=== PATIENT | male | born 1990 | race American Indian/Alaskan Native ===

== ENCOUNTER 2018-04-03 21:13 | Emergency (ER) | payer OTHER, SELFPAY ==
[2018-04-03 21:22] VITALS: BP 111/88; PULSE 65; RESP 15; TEMP 36.9; O2SAT 97; BMI 43.4
--- NOTE | 2018-04-03 21:47 | ED.URI ---
HPI - URI/Sore Throat <JEANETTE Mcintyre - Last Filed: 04/03/18 21:52> General Chief Complaint: Upper Respiratory Symptoms Stated Complaint: stuff going on in my throat fever Time Seen by Provider: 04/03/18 21:22 Source: patient and family Mode of arrival: ambulatory Limitations: no limitations History of Present Illness HPI Narrative: Patient is a healthy 28-year-old male nonsmoker was who presents with a chief complaint of sore throat since yesterday. He notes some low-grade fevers up to 99.9 a few days prior. He denies any ear pain cough congestion. Denies any nausea vomiting or diarrhea. 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 He denies any chest pain or shortness of breath. Review of Systems <JEANETTE Mcintyre - Last Filed: 04/03/18 21:52> Review of Systems GENERAL: Denies chills, fatigue, malaise, fever, sweats. HEENT: See HPI RESPIRATORY: Denies dyspnea, cough, wheezing, hemoptysis, sputum. CARDIOVASCULAR: Denies chest pain, palpitations, orthopnea, edema, GASTROINTESTINAL: Denies nausea, vomiting, abdominal pain, diarrhea, constipation, melena. : Denies dysuria, frequency, incontinence, hematuria, urinary retention. MUSCULOSKELETAL: denies weakness, joint pain, or bony pain SKIN: Denies rash, skin lesions, or other NEUROLOGIC: Denies weakness, headache, numbness, change in speech, confusion, seizures, incoordination. PSYCHIATRIC: No concerning psychosocial issues. 12 point review of systems is negative except for those stated above Exam <JEANETTE Mcintyre - Last Filed: 04/03/18 21:52> Narrative Exam Narrative: GENERAL: This is a well-nourished, well-developed patient, no acute distress HEAD: Atraumatic. Normocephalic. No temporal or scalp tenderness. EYES: Pupils equal round and reactive. Extraocular motions intact. No scleral icterus. No injection or drainage. ENT: Nose without bleeding, purulent drainage or septal hematoma. Throat with erythema, throat without tonsillar hypertrophy or exudate or petechiae. Uvula midline. Airway patent. NECK: Trachea midline. No JVD or lymphadenopathy. Supple, nontender, no meningeal signs. CARDIOVASCULAR: Regular rate and rhythm without murmurs, gallops, or rubs. RESPIRATORY: Clear to auscultation. Breath sounds equal bilaterally. No wheezes, rales, or rhonchi. GASTROINTESTINAL: Abdomen soft, non-tender, nondistended. No hepato-splenomegaly, or palpable masses. No guarding. Active bowel sounds all 4 quadrants EXTREMITIES: No clubbing, cyanosis, or edema. No joint tenderness, effusion, or edema noted. BACK: Nontender without deformity or crepitance. No flank tenderness. NEURO: AOx3. SKIN: No rash or erythema. Initial Vital Signs Initial Vital Signs: Vital Signs Temperature 98.5 F 04/03/18 21:22 Pulse Rate 65 04/03/18 21:22 Respiratory Rate 15 04/03/18 21:22 Blood Pressure 111/88 04/03/18 21:22 Pulse Oximetry 97 04/03/18 21:22 <Sherrie Ramos DO - Last Filed: 04/04/18 01:32> Initial Vital Signs Initial Vital Signs: Vital Signs Temperature 98.5 F 04/03/18 21:22 Pulse Rate 65 04/03/18 21:22 Respiratory Rate 15 04/03/18 21:22 Blood Pressure 111/88 04/03/18 21:22 Pulse Oximetry 97 04/03/18 21:22 Course <MIGUEL ÁNGEL Mcintyre - Last Filed: 04/03/18 21:52> Vital Signs - 8 hr 04/03/18 21:22 Temperature 98.5 F Pulse Rate 65 Respiratory Rate 15 Blood Pressure 111/88 Pulse Oximetry 97 <Sherrie Ramos DO - Last Filed: 04/04/18 01:32> Vital Signs - 8 hr 04/03/18 21:22 Temperature 98.5 F Pulse Rate 65 Respiratory Rate 15 Blood Pressure 111/88 Pulse Oximetry 97 MDM - URI/Sore Throat <MIGUEL ÁNGEL Mcintyre - Last Filed: 04/03/18 21:52> Lab Data Point of Care Testing Rapid Strep A Negative MDM Narrative Medical decision making narrative: Patient is a 28-year-old male who presents with a chief complaint of sore throat. He is concerned about strep due to low-grade fevers. His rapid strep was negative. He is much relieved with this information. I discussed at length continue [id number]-ilixogl measures such as Tylenol ibuprofen and pushing fluids. I encouraged follow-up with primary care provider for new worsening symptoms and discussed return precautions the emergency department including shortness of breath or chest pain. Patient had no questions or concerns upon discharge. <Sherrie Ramos DO - Last Filed: 04/04/18 01:32> Lab Data Point of Care Testing Rapid Strep A Negative Discharge Plan Departure Patient Disposition: Home Clinical Impression: Pharyngitis Discharge Date/Time: 04/03/18 22:20 Interventions: ED Discharge Assessment Last Done: 04/03/18 22:20 Instructions: DI for Pharyngitis/Tonsillopharyngitis -- Adult Activity Restrictions/Additional Instructions: Your rapid strep was negative today. Please continue as needed and able. Please follow-up with primary care provider if needed. Please come back to the emergency department for any acute concerns. Referrals: Christiano Marques MD [Primary Care Provider] - <Sherrie Ramos DO - Last Filed: 04/04/18 01:32> Cosign ED Attending Cosignature Attestation: I was immediately available in the department for consultation. This documentation has been reviewed and I agree with assessment and plan. Supervised by Sherrie Ramos DO
--- NOTE | 2018-04-03 21:51 | ED_ITS ---
HPI - URI/Sore Throat <JEANETTE Mcintyre - Last Filed: 04/03/18 21:52> General Chief Complaint: Upper Respiratory Symptoms Stated Complaint: stuff going on in my throat fever Time Seen by Provider: 04/03/18 21:22 Source: patient and family Mode of arrival: ambulatory Limitations: no limitations History of Present Illness HPI Narrative: Patient is a healthy 28-year-old male nonsmoker was who presents with a chief complaint of sore throat since yesterday. He notes some low-grade fevers up to 99.9 a few days prior. He denies any ear pain cough congestion. Denies any nausea vomiting or diarrhea. 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 He denies any chest pain or shortness of breath. Review of Systems <JEANETTE Mcintyre - Last Filed: 04/03/18 21:52> Review of Systems GENERAL: Denies chills, fatigue, malaise, fever, sweats. HEENT: See HPI RESPIRATORY: Denies dyspnea, cough, wheezing, hemoptysis, sputum. CARDIOVASCULAR: Denies chest pain, palpitations, orthopnea, edema, GASTROINTESTINAL: Denies nausea, vomiting, abdominal pain, diarrhea, constipation, melena. : Denies dysuria, frequency, incontinence, hematuria, urinary retention. MUSCULOSKELETAL: denies weakness, joint pain, or bony pain SKIN: Denies rash, skin lesions, or other NEUROLOGIC: Denies weakness, headache, numbness, change in speech, confusion, seizures, incoordination. PSYCHIATRIC: No concerning psychosocial issues. 12 point review of systems is negative except for those stated above Exam <JEANETTE Mcintyre - Last Filed: 04/03/18 21:52> Narrative Exam Narrative: GENERAL: This is a well-nourished, well-developed patient, no acute distress HEAD: Atraumatic. Normocephalic. No temporal or scalp tenderness. EYES: Pupils equal round and reactive. Extraocular motions intact. No scleral icterus. No injection or drainage. ENT: Nose without bleeding, purulent drainage or septal hematoma. Throat with erythema, throat without tonsillar hypertrophy or exudate or petechiae. Uvula midline. Airway patent. NECK: Trachea midline. No JVD or lymphadenopathy. Supple, nontender, no meningeal signs. CARDIOVASCULAR: Regular rate and rhythm without murmurs, gallops, or rubs. RESPIRATORY: Clear to auscultation. Breath sounds equal bilaterally. No wheezes , rales, or rhonchi. GASTROINTESTINAL: Abdomen soft, non-tender, nondistended. No hepato-splenomegaly , or palpable masses. No guarding. Active bowel sounds all 4 quadrants EXTREMITIES: No clubbing, cyanosis, or edema. No joint tenderness, effusion, or edema noted. BACK: Nontender without deformity or crepitance. No flank tenderness. NEURO: AOx3. SKIN: No rash or erythema. Initial Vital Signs Initial Vital Signs: Vital Signs Temperature 98.5 F 04/03/18 21:22 Pulse Rate 65 04/03/18 21:22 Respiratory Rate 15 04/03/18 21:22 Blood Pressure 111/88 04/03/18 21:22 Pulse Oximetry 97 04/03/18 21:22 <Sherrie Ramos DO - Last Filed: 04/04/18 01:32> Initial Vital Signs Initial Vital Signs: Vital Signs Temperature 98.5 F 04/03/18 21:22 Pulse Rate 65 04/03/18 21:22 Respiratory Rate 15 04/03/18 21:22 Blood Pressure 111/88 04/03/18 21:22 Pulse Oximetry 97 04/03/18 21:22 Course <MIGUEL ÁNGEL Mcintyre - Last Filed: 04/03/18 21:52> Vital Signs - 8 hr 04/03/18 21:22 Temperature 98.5 F Pulse Rate 65 Respiratory Rate 15 Blood Pressure 111/88 Pulse Oximetry 97 <Sherrie Ramos DO - Last Filed: 04/04/18 01:32> Vital Signs - 8 hr 04/03/18 21:22 Temperature 98.5 F Pulse Rate 65 Respiratory Rate 15 Blood Pressure 111/88 Pulse Oximetry 97 MDM - URI/Sore Throat <MIGUEL ÁNGEL Mcintyre - Last Filed: 04/03/18 21:52> Lab Data Point of Care Testing Rapid Strep A Negative MDM Narrative Medical decision making narrative: Patient is a 28-year-old male who presents with a chief complaint of sore throat. He is concerned about strep due to low- grade fevers. His rapid strep was negative. He is much relieved with this information. I discussed at length continue edth-qkf-afluvli measures such as Tylenol ibuprofen and pushing fluids. I encouraged follow-up with primary care provider for new worsening symptoms and discussed return precautions the emergency department including shortness of breath or chest pain. Patient had no questions or concerns upon discharge. <Sherrie Ramos DO - Last Filed: 04/04/18 01:32> Lab Data Point of Care Testing Rapid Strep A Negative Discharge Plan Departure Patient Disposition: Home Clinical Impression: Pharyngitis Discharge Date/Time: 04/03/18 22:20 Interventions: ED Discharge Assessment Last Done: 04/03/18 22:20 Instructions: DI for Pharyngitis/Tonsillopharyngitis -- Adult Activity Restrictions/Additional Instructions: Your rapid strep was negative today. Please continue as needed and able. Please follow-up with primary care provider if needed. Please come back to the emergency department for any acute concerns. Referrals: Christiano Marques MD [Primary Care Provider] - <Sherrie Ramos DO - Last Filed: 04/04/18 01:32> Cosign ED Attending Cosignature Attestation: I was immediately available in the department for consultation. This documentation has been reviewed and I agree with assessment and plan. Supervised by Sherrie Ramos DO
== END 2018-04-03 22:20 | disposition home or self-care (01) ==
PROVIDERS: Emergency Provider Nurse Practitioner Family; Family Provider Family Medicine; PCP Family Medicine
DX: J02.9 Acute pharyngitis, unspecified (principal)
CPT/HCPCS: 87880; 99282; 99283

== ENCOUNTER 2019-05-16 11:49 | Emergency (ER) | payer OTHER, SELFPAY ==
[2019-05-16 12:23] VITALS: BP 140/80; PULSE 100; RESP 16; TEMP 38.2
--- NOTE | 2019-05-16 12:49 | ED.URI ---
HPI - URI/Sore Throat <MILTON Ortega - Last Filed: 05/16/19 13:43> General Chief Complaint: Upper Respiratory Symptoms Stated Complaint: fever,dizziness,fatigue, has not travelled Time Seen by Provider: 05/16/19 12:25 Source: patient Mode of arrival: Ambulatory Limitations: no limitations History of Present Illness HPI Narrative: This is a 29-year-old male, nonsmoker, who presents to ED with chief complain of fever, dizziness, sore throat with breathing, nausea, cough, body aches and headache since Wednesday evening. Patient reports productive purulent cough or knee when he wakes up in the morning but it clears up after then. Patient states no recent foreign travel but was exposed to his who had similar symptoms. Patient denies chronic illnesses or immunocompromised. Patient did not receive influenza vaccination for this season. Patient denies vomiting, diarrhea at this time and has been drinking a lot of liquids at home but has not been eating much due to no appetite. Patient denies chest pain, breathing difficulty except coughing. Patient had been taking Sudafed and DayQuil and last dose of this medication was yesterday. Related Data Allergies Allergy/AdvReac Type Severity Reaction Status Date / Time No Known Drug Allergies Allergy Verified 05/16/19 13:25 Review of Systems <MILTON Ortega - Last Filed: 05/16/19 13:43> Review of Systems Narrative: General: Denies (+) fever, chills, (+) fatigue, (+) malaise, sweats. HEENT: Denies sinus pain, ear pain, (+) sore throat, difficulty swallowing, (+) dizziness. Respiratory: See HPI Cardiovascular: Denies chest pain, palpitations, orthopnea, edema. Gastrointestinal: Denies (+) nausea, vomiting, abdominal pain, diarrhea, constipation, melena. : Denies dysuria, frequency, incontinence, hematuria, urinary retention. Musculoskeletal: Denies weakness, joint pain or bony pain. Skin: Denies rash, skin lesions, or other. Neurologic: Denies (+) weakness, (+) headache, numbness, change in speech, confusion, seizures, incoordination. Psychiatric: No concerning psychosocial issues. 12-point review of systems is negative except for those stated above. Patient History <MILTON Ortega - Last Filed: 05/16/19 13:43> Social History Smoking Status: Never smoker Smoking Status: Never smoker alcohol intake frequency: 0-2 drinks per day Substance Use Type: does not use Exam <MILTON Ortega - Last Filed: 05/16/19 13:43> Narrative Exam Narrative: GEN: Alert, oriented x 3, ill appearing and well nourished. Head: Normal cephalic, atraumatic. No scalp or temporal tenderness, palpable mass or rash. EYES: Pupils are equal, round, and reactive to light and accommodation. Extraocular muscles are intact bilaterally. There is no subconjunctival hemorrhage, exudate and sclera non-icteric. ENT: Bilateral auditory canals and tympanic membranes clear. Hearing grossly intact. Nose without bleeding, purulent discharge or deviation. Facial sinuses nontender to palpate. Mucous membrane moist, no mucosal lesion. Throat without erythema, tonsillar hypertrophy or exudate. Uvula in midline, airway patent. Neck: Trachea in midline. No JVD, non-tender without lymphadenopathy. No masses or thyroid megaly. Supple, non-tender and no meningeal signs. CARDIAC: Normal regular rate and rhythm without murmurs, gallops, or rubs. No chest wall tenderness. No peripheral edema, cyanosis or pallor. Capillary refill is less than 2 seconds. RESPIRATORY: Lungs are clear to auscultate bilaterally. No cough, wheezes, rales, or rhonchi. No stridor, respiratory distress, increase work of breathing, or accessary muscle used. ABD: Abdomen soft, nontender and non-distended. No guarding or rebound tenderness to palpate. Bowel sounds are normal in all 4 quadrants. There is no palpable masses or organomegaly. EXT: Full ROM of all extremities with no loss of sensation, strength, effusion or edema. SKIN: Warm, dry, normal color for patient. No erythema, lesions or rash over visible areas. BACK: Nontender without deformity or crepitance. No flank tenderness. NEUROLOGICAL: Alert and oriented to place, time and person. Sensation and motor function intact bilaterally. No facial droops, dysphasia. PSYCHIATRIC: Good judgement and reason, without hallucinations, abnormal affect or abnormal behaviors during the examination. Initial Vital Signs Initial Vital Signs: Vital Signs Temperature 100.7 F H 05/16/19 12:23 Pulse Rate 100 H 05/16/19 12:23 Respiratory Rate 16 05/16/19 12:23 Blood Pressure 140/80 05/16/19 12:23 <Violeta Fitzpatrick DO - Last Filed: 05/18/19 07:32> Initial Vital Signs Initial Vital Signs: Vital Signs Temperature 100.7 F H 05/16/19 12:23 Pulse Rate 100 H 05/16/19 12:23 Respiratory Rate 16 05/16/19 12:23 Blood Pressure 140/80 05/16/19 12:23 Scores <MILTON Ortega - Last Filed: 05/16/19 13:43> GCS [place] coma scale eye opening: Spontaneous [place] coma scale verbal response: Orientated [place] coma scale motor response: Obey commands [place] coma scale total score: 15 Course <MILTON Ortega - Last Filed: 05/16/19 13:43> Orders Ordered: Discontinued Medications Acetaminophen (Tylenol) 975 mg PO NOW ONE Stop: 05/16/19 12:47 Last Admin: 05/16/19 13:05 Dose: 975 mg Documented by: RAVI Ibuprofen (Advil) 400 mg PO NOW ONE Stop: 05/16/19 12:47 Last Admin: 05/16/19 13:05 Dose: 400 mg Documented by: RAVI Ondansetron HCl (Zofran Odt) 4 mg SL NOW ONE Stop: 05/16/19 12:47 Last Admin: 05/16/19 13:05 Dose: 4 mg Documented by: RAVI Vital Signs Vital signs: Vital Signs - 8 hr 05/16/19 12:23 Temperature 100.7 F H Pulse Rate 100 H Respiratory Rate 16 Blood Pressure 140/80 <Violeta Fitzpatrick DO - Last Filed: 05/18/19 07:32> Orders Ordered: Discontinued Medications Acetaminophen (Tylenol) 975 mg PO NOW ONE Stop: 05/16/19 12:47 Last Admin: 05/16/19 13:05 Dose: 975 mg Documented by: RAVI Ibuprofen (Advil) 400 mg PO NOW ONE Stop: 05/16/19 12:47 Last Admin: 05/16/19 13:05 Dose: 400 mg Documented by: RAVI Ondansetron HCl (Zofran Odt) 4 mg SL NOW ONE Stop: 05/16/19 12:47 Last Admin: 05/16/19 13:05 Dose: 4 mg Documented by: RAVI Vital Signs Vital signs: Vital Signs - 8 hr 05/16/19 12:23 Temperature 100.7 F H Pulse Rate 100 H Respiratory Rate 16 Blood Pressure 140/80 MDM - URI/Sore Throat <MILTON Ortega - Last Filed: 05/16/19 13:43> Differential Diagnosis Differential diagnosis: Likely upper respiratory infection, viral infection and influenza Medical Records Attestation: I reviewed the patient's medical records. Lab Data Attestation: I reviewed the patient's lab results. Labs: Lab Results 05/16/19 Range/Units 12:00 Influenza A (RT-PCR) Flu a positive H (NEGATIVE) Influenza B (RT-PCR) Flu b negative (NEGATIVE) MDM Narrative Medical decision making narrative: Flu +A per today's test. The patient is able to tolerate fluids and he does not have chronic illness or previous chronic respiratory disease. Patient declines flu medication at this time. We discussed supportive care for his illness and good hand hygiene. Work note provided and advised to stay home until fever free for 24 hours. Patient advised to continue with Tylenol and Motrin as needed for discomfort and fever and increase oral hydration. Also, Mucinex for cough. Return precautions were discussed with the patient. Patient verbalized understanding and agrees with treatment plan. <Violeta Fitzpatrick DO - Last Filed: 05/18/19 07:32> Lab Data Labs: Lab Results 05/16/19 Range/Units 12:00 Influenza A (RT-PCR) Flu a positive H (NEGATIVE) Influenza B (RT-PCR) Flu b negative (NEGATIVE) Discharge Plan Departure Patient Disposition: Home Clinical Impression: Influenza Discharge Date/Time: 05/16/19 14:07 Instructions: DI for Influenza -- Adult Activity Restrictions/Additional Instructions: You have been diagnosed with [influenza a positive A. ]. What to do: *Take your medications as directed. Please continue to take Tylenol and or Motrin as needed for fever and body aches. Tylenol 650-1000 mg up to 4 times a day every 6 hours as needed. Ibuprofen 400 mg to 800 mg 3 to 4 times a day with food as needed. Please hydrate yourself very well and other supportive care such as rest. Good hand hygiene to prevent transmitting illness to others. No flu medications as you declined at this time. Please take Mucinex to help with help with your cough. Work note has been provided. *Follow up with your primary care provider in 2-3 days, call for an appointment. Let them know you were seen in the ED and that we asked you to be seen in follow up. *Return to ED if you have any new, worsening, or concerning symptoms, such as [chest pain, breathing difficulty, unable to tolerate fluids, or any acute concerns]. Referrals: Christiano Marques MD [Primary Care Provider] - Stand Alone Forms: Work Release Note
[2019-05-16 12:53] LABS: Influenza A - CEPHEID Flu A POSITIVE (NEGATIVE); Influenza B - CEPHEID Flu B NEGATIVE (NEGATIVE)
[2019-05-16] MEDS: IBUPROFEN 400 MG TABLET PO (13:05)
[2019-05-16] MEDS: ONDANSETRON 4 MG ODT SL (13:05)
[2019-05-16] MEDS: ACETAMINOPHEN 325 MG TABLET 975 MG PO (13:05)
[2019-05-16 14:00] VITALS: TEMP 37.7
== END 2019-05-16 14:07 | disposition home or self-care (01) ==
PROVIDERS: Emergency Medicine; Emergency Provider Nurse Practitioner Family; Family Provider Family Medicine; PCP Family Medicine
DX: J09.X2 Influenza due to identified novel influenza A virus with other respiratory manifestations (principal)
CPT/HCPCS: 87502; 99283

== ENCOUNTER 2021-09-12 15:49 | Emergency (ER) | payer OTHER, SELFPAY ==
[2021-09-12 16:14] VITALS: BP 184/100; PULSE 81; RESP 18; TEMP 36.9; O2SAT 98; BMI 48.8
--- NOTE | 2021-09-12 16:28 | ED.GENADULT ---
HPI - General Adult General Chief complaint: Urogenital-Male Stated complaint: Tried urinating, swelled up and cut off flow Time Seen by Provider: 09/12/21 16:16 Source: patient Mode of arrival: Ambulatory History of Present Illness HPI narrative: Patient is a 31-year-old male. He states that approximately 8 years ago he sustained injury to his urethra when he inserted a headphone Derian up his urethra. He states that he did sustain an injury to the urethra. He has seen Urology since then and was told that he needed ?surgery ?for further evaluation although he never followed up. Since that time he has been able to urinate. He feels like he is emptying his bladder although he states that his urine stream is very irregular. He normally does not have any pain when he urinates. Today he woke up this morning. Urinated normal for him. Just prior to arrival he was urinating again when he states that mid stream he felt like the tip of his penis ?swelled up and cut off flow ?of the urine. He did have discomfort at the time. Since that time his symptoms have improved. He urinated without issue in triage. No fevers. No testicular pain. No abdominal pain. No change in bowel habits. No history of sexually transmitted diseases. Related Data Previous Rx's Medication Instructions Recorded nystatin 100,000 unit/gram topical 1 applic TOPICAL TID 7 Days #30 g 09/12/21 cream Allergies Allergy/AdvReac Type Severity Reaction Status Date / Time No Known Drug Allergies Allergy Verified 05/16/19 13:25 Review of Systems Constitutional Constitutional: Reports system reviewed and no additional complaints, except as documented Gastrointestinal Gastrointestinal: Reports system reviewed and no additional complaints, except as documented Genitourinary Genitourinary: Reports system reviewed and no additional complaints, except as documented Integumentary/Breasts Skin/Breast: Reports system reviewed and no additional complaints, except as documented Hematologic/Lymphatic On Anticoagulants: No Patient History Medical History Urethral injury Social History Smoking Status: Never smoker Smoking Status: Never smoker alcohol intake frequency: 0-2 drinks per day Substance Use Type: does not use Exam Initial Vital Signs Initial Vital Signs: Vital Signs Temperature 98.4 F 09/12/21 16:14 Pulse Rate 81 09/12/21 16:14 Respiratory Rate 18 09/12/21 16:14 Blood Pressure 184/100 H 09/12/21 16:14 Pulse Oximetry 98 09/12/21 16:14 GI Inspection: normal to inspection Palpation: soft, No firm and No tender Other: Circumcised, bilateral testes descended without tenderness. No hernia felt. Glans is unremarkable. He does have skin irritation and some ulcerations at the base of the glans where the skin folds are located. Skin Other: see section Neuro General: patient alert, patient awake and moves all extremities Extrem General: normal to inspection Psych Appearance: grossly normal and well kempt Course Vital Signs Vital signs: Vital Signs - 8 hr 09/12/21 16:14 Temperature 98.4 F Pulse Rate 81 Respiratory Rate 18 Blood Pressure 184/100 H Pulse Oximetry 98 Medical Decision Making Lab Data Lab results reviewed: Yes I reviewed the patient's lab results. Labs: Urine Dip Bedside Urine Glucose Negative Bedside Urine Bilirubin - Negative Bedside Urine Ketone - Negative Urine Specific [place] 1.025 Bedside Urine Occult Blood - Negative Bedside Urine pH 6.0 Bedside Urine Protein - Negative Bedside Urine Urobilinogen - Negative Bedside Urine Nitrite - Negative Bedside Urine Leukocytes - Negative Esterase Point of care testing: Urine Dip Bedside Urine Glucose Negative Bedside Urine Bilirubin - Negative Bedside Urine Ketone - Negative Urine Specific [place] 1.025 Bedside Urine Occult Blood - Negative Bedside Urine pH 6.0 Bedside Urine Protein - Negative Bedside Urine Urobilinogen - Negative Bedside Urine Nitrite - Negative Bedside Urine Leukocytes - Negative Esterase MDM Narrative Medical decision making narrative: Patient was able to urinate here in the ER any states it is back to his baseline. He does not have any sensation of retaining urine. His urinalysis shows no signs of infection. No blood. No history of stones. I would not be surprised if he does have strictures given his prior history. He does require follow-up with Urology although this does not need to happen emergently. He was given information for this. He does have skin changes around the base of the glans that is consistent with a yeast infection. Low suspicion for other infectious etiology to include chancroid/syphilis even other is a small ulceration in this area. Will start on nystatin cream. He was given strict return precautions. He expressed understanding and agreement. Discharge Plan Departure Patient Disposition: Home Clinical Impression: Urinary hesitancy, Skin yeast infection Activity Restrictions/Additional Instructions: It is important that you follow-up with Urology to discuss further evaluation of your symptoms. Please contact them at the number provided below the beginning of next week. Continue all medications as directed. Return to the emergency department for any new or worsening symptoms. Prescriptions: New nystatin 100,000 unit/gram cream 1 applic topical TID 7 Days Qty: 30 0RF Referrals: Christiano Marques MD [Primary Care Provider] -
[2021-09-12 17:06] VITALS: BP 159/83; PULSE 74; O2SAT 97
== END 2021-09-12 17:09 | disposition home or self-care (01) ==
PROVIDERS: Emergency Provider Emergency Medicine; Family Provider Family Medicine; PCP Family Medicine
DX: R39.11 Hesitancy of micturition (principal); B37.2 Candidiasis of skin and nail
CPT/HCPCS: 81003; 99281

== ENCOUNTER → 2022-01-20 07:53 | Outpatient (CLI) | payer OTHER, SELFPAY | PROVIDERS: Family Provider Family Medicine; Visit Provider Specialist | DX: R31.9 Hematuria, unspecified (principal); N48.0 Leukoplakia of penis | CPT/HCPCS: 51798; 81002; 87086; 87147; 99214 ==

== ENCOUNTER 2022-07-21 17:21 | Emergency (ER) | payer OTHER, SELFPAY ==
[2022-07-21 17:35] VITALS: BP 188/91; PULSE 79; RESP 18; TEMP 37; O2SAT 97; BMI 50.1
--- NOTE | 2022-07-21 18:16 | ED_ITS ---
HPI - Wound/Laceration General Chief Complaint: Wound/Laceration Stated Complaint: cut left forearm Time Seen by Provider: 07/21/22 18:12 Source: patient Mode of arrival: Ambulatory Limitations: no limitations History of Present Illness HPI narrative: Patient is an otherwise healthy 32-year-old male who is here for evaluation of lacerations/abrasions to his left forearm. He states that he cut it on a chain saw. The chainsaw was not running at the time. He does not know when his last tetanus shot was. He is no tingling or mobility issues to his left wrist and left hand. Was covered with a bandage prior to arrival. Related Data Allergies Allergy/AdvReac Type Severity Reaction Status Date / Time No Known Drug Allergies Allergy Verified 07/21/22 17:40 Review of Systems Constitutional Constitutional: Reports system reviewed and no additional complaints, except as documented Musculoskeletal Musculoskeletal: Reports system reviewed and no additional complaints, except as documented Integumentary/Breasts Skin/Breast: Reports system reviewed and no additional complaints, except as documented Neurologic Neurologic: Reports system reviewed and no additional complaints, except as documented Patient History Medical History Acquired urinary meatal stenosis BXO (balanitis xerotica obliterans) History of high blood pressure Urethral injury Family History Father Cancer Hypertension Social History marital status: number of children: 4 Smoking Status: Former smoker Tobacco: How many years used: 3 alcohol intake: former caffeine: Yes Type(s) of exercise: none Smoking Status: Former smoker alcohol intake frequency: 0-2 drinks per day Substance Use Type: does not use Exam Initial Vital Signs Initial Vital Signs: Vital Signs Temperature 98.6 F 07/21/22 17:35 Pulse Rate 79 07/21/22 17:35 Respiratory Rate 18 07/21/22 17:35 Blood Pressure 188/91 H 07/21/22 17:35 Pulse Oximetry 97 07/21/22 17:35 Oxygen Delivery Method Room Air 07/21/22 17:35 Const General: cooperative and comfortable Cardio Pulses: radial pulses present on the left Skin Other: Patient with several abrasions/superficial lacerations to the volar aspect of the distal 1/3 of the left forearm. Normal active bleeding. Neuro Sensory Exam: no sensory deficits noted Extrem Other: Full range of motion of left wrist and left hand. He can flex and extend at the wrist and the fingers. Course Orders Ordered: Discontinued Medications Bacitracin (Bacitracin Oint 0.9 Gm Pckt) 1 applic TOP NOW ONE Stop: 07/21/22 18:17 Last Admin: 07/21/22 18:20 Dose: 1 applic Documented By: [facility] Diphtheria/Tetanus/Acell Pertussis (Tet,Diph,Pertuss(Acell),Vac/Pf 0.5 Ml Syringe) 0.5 ml IM .ONCE ONE Stop: 07/21/22 18:09 Last Admin: 07/21/22 18:19 Dose: 0.5 ml Documented By: NICK Vital Signs Vital signs: Vital Signs - 8 hr 07/21/22 17:35 Temperature 98.6 F Pulse Rate 79 Respiratory Rate 18 Blood Pressure 188/91 H Pulse Oximetry 97 Oxygen Delivery Method Room Air MDM - Wound/Laceration MDM Narrative Medical decision making narrative: We lacerations are superficial. There is no active bleeding. No signs of tendon involvement. Neurovascularly intact. These superficial wounds to left arm the no specific intervention such as suturing here in the emergency department. Recommend covering with an antibiotic ointment and a bandage. His tetanus shot was updated. He was given care instructions and return precautions. L and I paperwork completed. He expressed understanding and agreement with plan. Discharge Plan Departure Patient Disposition: Home Clinical Impression: Abrasion of skin, Laceration of skin Instructions: DI for Minor Laceration Activity Restrictions/Additional Instructions: You can keep the area covered with antibiotic ointment and a bandage. Your tetanus was updated today. You have no restrictions of your activities. You can shower like normal and use soap and water. I would recommend that you keep a bandage over the area to keep it clean. Return to the emergency department f or new symptoms. Referrals: Miscellaneous,Doctor, [Primary Care Provider] - Stand Alone Forms: Patient Portal/API
[2022-07-21] MEDS: TET,DIPH,PERTUSS(ACELL),VAC/PF 0.5 ML SYRINGE IM (18:19)
[2022-07-21] MEDS: BACITRACIN OINT 0.9 GM PCKT 1 APPLIC TOP (18:20)
== END 2022-07-21 18:28 | disposition home or self-care (01) ==
PROVIDERS: Emergency Provider Emergency Medicine; Family Provider Family Medicine
DX: S51.812A Laceration without foreign body of left forearm, initial encounter (principal); W27.0XXA Contact with workbench tool, initial encounter; Z23 Encounter for immunization; Y99.0 Civilian activity done for income or pay
CPT/HCPCS: 90471; 99283; 90715

== ENCOUNTER 2022-11-28 11:01 | Inpatient (IN) | payer OTHER, SELFPAY ==
[2022-11-28] VITALS (60 sets, daily range): BP systolic 101–201; BP diastolic 58–95; PULSE 80–121; RESP 6–43; TEMP 31.1–38.7; O2SAT 90–97; BMI 52.2; BMI 51.5
--- NOTE | 2022-11-28 11:14 | DI.RAD.S_ITS ---
PROCEDURE: XR CHEST 1V INDICATIONS: suspected sepsis TECHNIQUE: One view of the chest was acquired. COMPARISON: None. FINDINGS: Surgical changes and devices: None. Lungs and pleura: Lungs are clear. No pleural effusions or pneumothorax. Mediastinum: Mediastinal contours appear normal. Heart size is normal. Bones and chest wall: No suspicious bony lesions. Overlying soft tissues appear unremarkable. IMPRESSION: No acute cardiopulmonary findings Approved by: Víctor Simmons M.D. on 11/28/2022 at 11:26
[2022-11-28] MEDS: ALBUTEROL/IPRATROPIUM 3 ML AMPUL INH (11:30)
[2022-11-28 11:49] LABS: INR 1.1 (0.9-1.3); Prothrombin Time 12.2 SECONDS (10.1-12.7)
[2022-11-28] MEDS: methylPREDNISolone 125 MG/2 ML VIAL IV (11:49)
--- NOTE | 2022-11-28 11:49 | ED_ITS ---
HPI - SOB/Dyspnea General Chief Complaint: Fever Stated Complaint: Allergies/Cold/Feverish/Cough/SOB Time Seen by Provider: 11/28/22 11:39 Source: patient and family Mode of arrival: Ambulatory Limitations: no limitations History of Present Illness HPI Narrative: Patient is a 32-year-old male history of exercise-induced asthma presents today with sudden onset shortness of breath. Developed upper respiratory like symptoms a few days ago. He is an obvious respiratory distress he has a fever of 101. He reports feeling fine yesterday and now feels like his chest is tight and difficulty breathing. Denies any cough. Related Data Home Medications Medication Instructions Recorded Confirmed No Known Home Medications 11/28/22 11/28/22 Allergies Allergy/AdvReac Type Severity Reaction Status Date / Time No Known Drug Allergies Allergy Verified 11/28/22 15:35 Review of Systems Review of Systems ROS Unobtainable: All systems reviewed & are unremarkable except as noted in HPI and below Patient History Medical History Acquired urinary meatal stenosis BXO (balanitis xerotica obliterans) History of high blood pressure Urethral injury Family History Father Cancer Hypertension Social History marital status: number of children: 4 household members: spouse Smoking Status: Former smoker Tobacco: How many years used: 3 alcohol intake: former caffeine: Yes Type(s) of exercise: none Smoking Status: Former smoker alcohol intake frequency: 0-2 drinks per day Substance Use Type: does not use Exam Initial Vital Signs Initial Vital Signs: Vital Signs Temperature 101.7 F H 11/28/22 11:14 Pulse Rate 100 H 11/28/22 11:14 Respiratory Rate 40 H 11/28/22 11:14 Blood Pressure 188/90 H 11/28/22 11:14 Pulse Oximetry 93 11/28/22 11:14 Oxygen Delivery Method Room Air 11/28/22 11:14 GENERAL: 32-year-old obese male in moderate respiratory distress HEENT: Head atraumatic,EOMI, pupils reactive, face symmetric, moist mucous membranes CARDIOVASCULAR: Regular rate and rhythm without murmurs, rubs or gallops. RESPIRATORY: Decreased breath sounds bilaterally some expiratory wheezing tachypneic ABDOMEN: Soft, nontender. Normoactive bowel sounds all 4 quadrants. No guarding or rebound. EXTREMITIES: Normal range of motion, no clubbing or edema. Neurovascularly intact NEUROLOGICAL: Alert and oriented x4. SKIN: Warm, dry, no laceration, no petechiae, no rashes or lesions. Course Orders Ordered: ED Orders 11/28/22 11:14 XR chest 1V Stat RT Consult Eval and Treat NOW 11/28/22 11:20 Respiratory Panel (Film Array) Stat 11/28/22 11:31 BNP [NT-proBNP (BNP-Adult 18+)] Stat Complete Blood Count AUTO DIFF Stat Comprehensive Metabolic Panel Stat Lactate (Lactic Acid) Stat Lipase Stat MAG [Magnesium] Stat PTT Partial Thromboplastin Saeed Stat Procalcitonin Stat Prothrombin Time INR Stat Trop I [Troponin I] Stat 11/28/22 11:43 EKG-12 Lead Stat 11/28/22 12:55 Urinalysis and Microscopic Stat Urine Culture Stat 11/28/22 13:18 Blood Culture Stat 11/28/22 14:05 ABG [Arterial Blood Gas] Stat Acetaminophen (Acetaminophen 325 Mg Tablet) 650 mg PO Q6H PRN PRN Reason: Fever/Mild Pain (1-3) Albuterol (Albuterol 2.5 Mg/3 Ml Neb (Adult)) 2.5 mg INH [id number] PRN PRN Reason: Shortness Of Breath Albuterol (Albuterol 2.5 Mg/3 Ml Neb (Adult)) 2.5 mg INH [id number] [id number] Last Admin: 11/28/22 18:37 Dose: Not Given Documented By: SAT Albuterol/Ipratropium (Albuterol/Ipratropium 3 Ml Ampul) 3 ml INH Q1H PRN PRN Reason: Shortness Of Breath Last Admin: 11/28/22 11:30 Dose: 3 ml Documented By: SAT Heparin Sodium (Porcine) (Heparin 5,000 Unit/Ml Vial) 5,000 unit SUBCUT BID [facility] Ondansetron HCl (Ondansetron 4 Mg/2 Ml Inj) 4 mg IV Q8HR PRN PRN Reason: Nausea And Vomiting Prednisone (Prednisone 20 Mg Tablet) 60 mg PO DAILY [facility] Discontinued Medications Albuterol (Albuterol 2.5 Mg/3 Ml Neb (Adult)) 20 mg INH NOW ONE Stop: 11/28/22 11:40 Last Admin: 11/28/22 11:52 Dose: 20 mg Documented By: RONALD Albuterol (Albuterol 2.5 Mg/3 Ml Neb (Adult)) 20 mg INH NOW ONE Stop: 11/28/22 15:25 Last Admin: 11/28/22 15:29 Dose: 20 mg Documented By: QAMAR Sodium Chloride (Normal Saline 0.9%) 1,000 mls @ 1,000 mls/hr IV BOLUS ONE Stop: 11/28/22 12:12 Last Infusion: 11/28/22 13:54 Dose: 0 mls/hr Documented By: Admin: 11/28/22 11:50 Dose: 1,000 mls/hr Documented By: Methylprednisolone (Methylprednisolone 125 Mg/2 Ml Vial) 125 mg IV NOW ONE Stop: 11/28/22 11:40 Last Admin: 11/28/22 11:49 Dose: 125 mg Documented By: ST Ondansetron HCl (Ondansetron 4 Mg/2 Ml Inj) 4 mg IV NOW PRN PRN Reason: Nausea And Vomiting Ondansetron HCl (Ondansetron 4 Mg Odt) 4 mg SL NOW PRN PRN Reason: Nausea And Vomiting Vital Signs Vital signs: Vital Signs - 8 hr 11/28/22 11:30 11/28/22 12:00 11/28/22 12:19 Pulse Rate 96 H 93 H 94 H Respiratory Rate 24 17 25 H Blood Pressure Pulse Oximetry 91 94 94 Oxygen Delivery Method Oximask Oxygen Flow Rate 6 Fraction of Inspired Oxygen 11/28/22 12:19 11/28/22 12:30 11/28/22 12:30 Pulse Rate 102 H Respiratory Rate 21 Blood Pressure 130/65 140/71 Pulse Oximetry 95 Oxygen Delivery Method Oxygen Flow Rate Fraction of Inspired Oxygen 11/28/22 13:00 11/28/22 13:01 11/28/22 13:01 Pulse Rate 111 H 112 H Respiratory Rate 24 21 Blood Pressure 173/85 H Pulse Oximetry 95 95 Oxygen Delivery Method Oxygen Flow Rate Fraction of Inspired Oxygen 11/28/22 13:15 11/28/22 13:30 11/28/22 13:31 Pulse Rate 112 H 109 H Respiratory Rate 42 H 33 H Blood Pressure 147/70 H Pulse Oximetry 95 94 Oxygen Delivery Method Oxygen Flow Rate Fraction of Inspired Oxygen 11/28/22 13:31 11/28/22 13:45 11/28/22 14:00 Pulse Rate 109 H 113 H 107 H Respiratory Rate 36 H 17 30 H Blood Pressure Pulse Oximetry 94 91 Oxygen Delivery Method Room Air Room Air Oxygen Flow Rate Fraction of Inspired Oxygen 11/28/22 11:50 11/28/22 13:00 11/28/22 12:00 Pulse Rate 80 108 H Respiratory Rate 24 24 Blood Pressure 132/59 L Pulse Oximetry 92 95 Oxygen Delivery Method Room Air Aerosol Mask Oxygen Flow Rate 6 Fraction of Inspired Oxygen 28 11/28/22 14:15 11/28/22 14:17 11/28/22 14:17 Pulse Rate 109 H 109 H Respiratory Rate 28 H 23 Blood Pressure 132/59 L Pulse Oximetry 92 91 Oxygen Delivery Method Oxygen Flow Rate Fraction of Inspired Oxygen 11/28/22 14:30 11/28/22 14:45 11/28/22 15:00 Pulse Rate 108 H 105 H 108 H Respiratory Rate 22 Blood Pressure Pulse Oximetry 96 95 92 Oxygen Delivery Method Oxygen Flow Rate Fraction of Inspired Oxygen 11/28/22 15:15 11/28/22 15:30 Pulse Rate 100 H 101 H Respiratory Rate Blood Pressure Pulse Oximetry 92 95 Oxygen Delivery Method BiPAP Oxygen Flow Rate Fraction of Inspired Oxygen MDM - SOB/Dyspnea Lab Data 11/28/22 11:31 11/28/22 11:31 Labs: Lab Results 11/28/22 11/28/22 11/28/22 Range/Units 11:20 11:20 11:31 WBC 17.6 H (4.5-11.0) X10^3/uL RBC 4.95 (4.5-5.9) X10^6/uL Hgb 14.2 (13.5-17.5) g/dL Hct 42.2 (41-53) % MCV 85.2 (80-100) fL MCH 28.7 (26-34) PG MCHC 33.7 (30-36) % RDW 13.2 (11.6-14.8) % Plt Count 324 (150-400) X10^3/uL Neut % (Auto) 77.1 H (50-75) % Lymph % (Auto) 11.6 L (25-40) % Davis % (Auto) 7.3 (3-14) % Eos % (Auto) 3.0 (2-4) % Baso % (Auto) 1.0 (0-2) % Neut # (Auto) 75593 H (4235-3279) /uL Lymph # (Auto) 2000 (1346-1770) /uL Davis # (Auto) 1300 H (0-900) /uL Eos # (Auto) 500 H (0-450) /uL Baso # (Auto) 200 H (0-100) /uL RBC Morphology Normal morphology PT (10.1-12.7) SECONDS INR (0.9-1.3) APTT (26-36) SECONDS ABG pH (7.35-7.45) ABG pCO2 (35-45) mmHg ABG pO2 (80-100) mmHg ABG HCO3 (23-27) mmol/L ABG Total CO2 (23-27) mmol/L ABG O2 Saturation (95-100) % ABG Base Excess (-2-3) mmol/L FiO2 Sodium (137-145) mmol/L Potassium (3.4-5.1) mmol/L Chloride (98-107) mmol/L Carbon Dioxide (22-32) mmol/L BUN (9-20) mg/dL Creatinine (0.66-1.25) mg/dL Estimated GFR (>60) mL/min BUN/Creatinine Ratio (6-22) Glucose (70-100) mg/dL Lactate (0.7-2.1) mmol/L Calcium (8.4-10.2) mg/dL Magnesium (1.6-2.3) mg/dL Total Bilirubin (0.2-1.3) mg/dL AST (17-59) IU/L ALT (<50) IU/L Alkaline Phosphatase (38-126) U/L Troponin I (0.01-0.034) ng/mL NT-Pro-B Natriuret Pep (<125) pg/mL Total Protein (6.3-8.2) g/dL Albumin (3.5-5.0) g/dL Globulin (1.7-4.1) g/dL Albumin/Globulin Ratio (1.0-2.8) Lipase (23-300) U/L Procalcitonin (<0.5) ng/mL Urine Color Urine Appearance Urine pH (4.5-8.0) Ur Specific [place] (1.000-1.035) Urine Protein (Negative) Urine Glucose (UA) (Negative) g/dL Urine Ketones (NEGATIVE) Urine Occult Blood (Negative) Urine Nitrate (Negative) Urine Bilirubin (NEGATIVE) Urine Urobilinogen (0.2) E.U./dL Ur Leukocyte Esterase (NEGATIVE) Urine RBC (0-5/HPF) Urine WBC (0-5/HPF) Ur Squamous Epith Cells (0-5/HPF) Urine Bacteria (None) Ur Culture Indicated? Chlamy pneumoniae PCR Not detected (Not Detect) Adenovirus (PCR) Not detected (Not Detect) B. pertussis DNA (PCR) Not detected (Not Detecte) B.parapertussis DNA PCR Not detected (Not Detecte) Coronavirus OC43 (PCR) Not detected (Not Detect) Coronavirus HKU1 (PCR) Not detected (Not Detect) Coronavirus 229E (PCR) Not detected (Not Detect) SARS-CoV-2 (PCR) Cancelled Not detected Coronavirus NL63 (PCR) Not detected (Not Detect) Human Metapneumovir PCR Not detected (Not Detect) Influenza Type A (PCR) Not detected (Not Detect) Influenza Type B (PCR) Not detected (Not Detect) M. pneumoniae (PCR) Not detected (Not Detect) Parainfluenza 1 (PCR) Not detected (Not Detect) Parainfluenza 2 (PCR) Not detected (Not Detect) Parainfluenza 3 (PCR) Not detected (Not Detect) Parainfluenza 4 (PCR) Not detected (Not Detect) RSV (PCR) Not detected (Not Detect) Entero/Rhino (PCR) Detected H (Not Detect) 11/28/22 11/28/22 11/28/22 Range/Units 11:31 11:31 11:31 WBC (4.5-11.0) X10^3/uL RBC (4.5-5.9) X10^6/uL Hgb (13.5-17.5) g/dL Hct (41-53) % MCV (80-100) fL MCH (26-34) PG MCHC (30-36) % RDW (11.6-14.8) % Plt Count (150-400) X10^3/uL Neut % (Auto) (50-75) % Lymph % (Auto) (25-40) % Davis % (Auto) (3-14) % Eos % (Auto) (2-4) % Baso % (Auto) (0-2) % Neut # (Auto) (7846-5614) /uL Lymph # (Auto) (9731-5008) /uL Davis # (Auto) (0-900) /uL Eos # (Auto) (0-450) /uL Baso # (Auto) (0-100) /uL RBC Morphology PT 12.2 (10.1-12.7) SECONDS INR 1.1 (0.9-1.3) APTT 22 L (26-36) SECONDS ABG pH (7.35-7.45) ABG pCO2 (35-45) mmHg ABG pO2 (80-100) mmHg ABG HCO3 (23-27) mmol/L ABG Total CO2 (23-27) mmol/L ABG O2 Saturation (95-100) % ABG Base Excess (-2-3) mmol/L FiO2 Sodium 137 (137-145) mmol/L Potassium 4.2 (3.4-5.1) mmol/L Chloride 100 (98-107) mmol/L Carbon Dioxide 27 (22-32) mmol/L BUN 9 (9-20) mg/dL Creatinine 0.76 (0.66-1.25) mg/dL Estimated GFR > 60 (>60) mL/min BUN/Creatinine Ratio 11.8 (6-22) Glucose 107 H (70-100) mg/dL Lactate 2.0 (0.7-2.1) mmol/L Calcium 8.9 (8.4-10.2) mg/dL Magnesium (1.6-2.3) mg/dL Total Bilirubin 0.7 (0.2-1.3) mg/dL AST 45 (17-59) IU/L ALT 40 (<50) IU/L Alkaline Phosphatase 106 (38-126) U/L Troponin I (0.01-0.034) ng/mL NT-Pro-B Natriuret Pep (<125) pg/mL Total Protein 8.4 H (6.3-8.2) g/dL Albumin 4.3 (3.5-5.0) g/dL Globulin 4.1 (1.7-4.1) g/dL Albumin/Globulin Ratio 1.0 (1.0-2.8) Lipase 118 (23-300) U/L Procalcitonin 0.07 (<0.5) ng/mL Urine Color Urine Appearance Urine pH (4.5-8.0) Ur Specific [place] (1.000-1.035) Urine Protein (Negative) Urine Glucose (UA) (Negative) g/dL Urine Ketones (NEGATIVE) Urine Occult Blood (Negative) Urine Nitrate (Negative) Urine Bilirubin (NEGATIVE) Urine Urobilinogen (0.2) E.U./dL Ur Leukocyte Esterase (NEGATIVE) Urine RBC (0-5/HPF) Urine WBC (0-5/HPF) Ur Squamous Epith Cells (0-5/HPF) Urine Bacteria (None) Ur Culture Indicated? Chlamy pneumoniae PCR (Not Detect) Adenovirus (PCR) (Not Detect) B. pertussis DNA (PCR) (Not Detecte) B.parapertussis DNA PCR (Not Detecte) Coronavirus OC43 (PCR) (Not Detect) Coronavirus HKU1 (PCR) (Not Detect) Coronavirus 229E (PCR) (Not Detect) SARS-CoV-2 (PCR) Coronavirus NL63 (PCR) (Not Detect) Human Metapneumovir PCR (Not Detect) Influenza Type A (PCR) (Not Detect) Influenza Type B (PCR) (Not Detect) M. pneumoniae (PCR) (Not Detect) Parainfluenza 1 (PCR) (Not Detect) Parainfluenza 2 (PCR) (Not Detect) Parainfluenza 3 (PCR) (Not Detect) Parainfluenza 4 (PCR) (Not Detect) RSV (PCR) (Not Detect) Entero/Rhino (PCR) (Not Detect) 11/28/22 11/28/22 11/28/22 Range/Units 11:31 11:31 12:55 WBC (4.5-11.0) X10^3/uL RBC (4.5-5.9) X10^6/uL Hgb (13.5-17.5) g/dL Hct (41-53) % MCV (80-100) fL MCH (26-34) PG MCHC (30-36) % RDW (11.6-14.8) % Plt Count (150-400) X10^3/uL Neut % (Auto) (50-75) % Lymph % (Auto) (25-40) % Davis % (Auto) (3-14) % Eos % (Auto) (2-4) % Baso % (Auto) (0-2) % Neut # (Auto) (4578-2739) /uL Lymph # (Auto) (7837-1836) /uL Davis # (Auto) (0-900) /uL Eos # (Auto) (0-450) /uL Baso # (Auto) (0-100) /uL RBC Morphology PT (10.1-12.7) SECONDS INR (0.9-1.3) APTT (26-36) SECONDS ABG pH (7.35-7.45) ABG pCO2 (35-45) mmHg ABG pO2 (80-100) mmHg ABG HCO3 (23-27) mmol/L ABG Total CO2 (23-27) mmol/L ABG O2 Saturation (95-100) % ABG Base Excess (-2-3) mmol/L FiO2 Sodium (137-145) mmol/L Potassium (3.4-5.1) mmol/L Chloride (98-107) mmol/L Carbon Dioxide (22-32) mmol/L BUN (9-20) mg/dL Creatinine (0.66-1.25) mg/dL Estimated GFR (>60) mL/min BUN/Creatinine Ratio (6-22) Glucose (70-100) mg/dL Lactate (0.7-2.1) mmol/L Calcium (8.4-10.2) mg/dL Magnesium 1.9 (1.6-2.3) mg/dL Total Bilirubin (0.2-1.3) mg/dL AST (17-59) IU/L ALT (<50) IU/L Alkaline Phosphatase (38-126) U/L Troponin I < 0.012 (0.01-0.034) ng/mL NT-Pro-B Natriuret Pep 37 (<125) pg/mL Total Protein (6.3-8.2) g/dL Albumin (3.5-5.0) g/dL Globulin (1.7-4.1) g/dL Albumin/Globulin Ratio (1.0-2.8) Lipase (23-300) U/L Procalcitonin (<0.5) ng/mL Urine Color Yellow Urine Appearance Clear Urine pH 7.0 (4.5-8.0) Ur Specific [place] 1.010 (1.000-1.035) Urine Protein Negative (Negative) Urine Glucose (UA) Negative (Negative) g/dL Urine Ketones Negative (NEGATIVE) Urine Occult Blood Trace-intact (Negative) Urine Nitrate Negative (Negative) Urine Bilirubin Negative (NEGATIVE) Urine Urobilinogen 0.2 (0.2) E.U./dL Ur Leukocyte Esterase Trace H (NEGATIVE) Urine RBC 0-1/hpf (0-5/HPF) Urine WBC 1-5/hpf (0-5/HPF) Ur Squamous Epith Cells 0-1 /hpf (0-5/HPF) Urine Bacteria Occasional (0-1) (None) Ur Culture Indicated? Specimen cultured Chlamy pneumoniae PCR (Not Detect) Adenovirus (PCR) (Not Detect) B. pertussis DNA (PCR) (Not Detecte) B.parapertussis DNA PCR (Not Detecte) Coronavirus OC43 (PCR) (Not Detect) Coronavirus HKU1 (PCR) (Not Detect) Coronavirus 229E (PCR) (Not Detect) SARS-CoV-2 (PCR) Coronavirus NL63 (PCR) (Not Detect) Human Metapneumovir PCR (Not Detect) Influenza Type A (PCR) (Not Detect) Influenza Type B (PCR) (Not Detect) M. pneumoniae (PCR) (Not Detect) Parainfluenza 1 (PCR) (Not Detect) Parainfluenza 2 (PCR) (Not Detect) Parainfluenza 3 (PCR) (Not Detect) Parainfluenza 4 (PCR) (Not Detect) RSV (PCR) (Not Detect) Entero/Rhino (PCR) (Not Detect) 11/28/22 Range/Units 14:05 WBC (4.5-11.0) X10^3/uL RBC (4.5-5.9) X10^6/uL Hgb (13.5-17.5) g/dL Hct (41-53) % MCV (80-100) fL MCH (26-34) PG MCHC (30-36) % RDW (11.6-14.8) % Plt Count (150-400) X10^3/uL Neut % (Auto) (50-75) % Lymph % (Auto) (25-40) % Davis % (Auto) (3-14) % Eos % (Auto) (2-4) % Baso % (Auto) (0-2) % Neut # (Auto) (8130-8849) /uL Lymph # (Auto) (8604-0269) /uL Davis # (Auto) (0-900) /uL Eos # (Auto) (0-450) /uL Baso # (Auto) (0-100) /uL RBC Morphology PT (10.1-12.7) SECONDS INR (0.9-1.3) APTT (26-36) SECONDS ABG pH 7.44 (7.35-7.45) ABG pCO2 32.4 L (35-45) mmHg ABG pO2 50 L (80-100) mmHg ABG HCO3 22 L (23-27) mmol/L ABG Total CO2 23 (23-27) mmol/L ABG O2 Saturation 87 L (95-100) % ABG Base Excess -2.0 (-2-3) mmol/L FiO2 21 Sodium (137-145) mmol/L Potassium (3.4-5.1) mmol/L Chloride (98-107) mmol/L Carbon Dioxide (22-32) mmol/L BUN (9-20) mg/dL Creatinine (0.66-1.25) mg/dL Estimated GFR (>60) mL/min BUN/Creatinine Ratio (6-22) Glucose (70-100) mg/dL Lactate (0.7-2.1) mmol/L Calcium (8.4-10.2) mg/dL Magnesium (1.6-2.3) mg/dL Total Bilirubin (0.2-1.3) mg/dL AST (17-59) IU/L ALT (<50) IU/L Alkaline Phosphatase (38-126) U/L Troponin I (0.01-0.034) ng/mL NT-Pro-B Natriuret Pep (<125) pg/mL Total Protein (6.3-8.2) g/dL Albumin (3.5-5.0) g/dL Globulin (1.7-4.1) g/dL Albumin/Globulin Ratio (1.0-2.8) Lipase (23-300) U/L Procalcitonin (<0.5) ng/mL Urine Color Urine Appearance Urine pH (4.5-8.0) Ur Specific [place] (1.000-1.035) Urine Protein (Negative) Urine Glucose (UA) (Negative) g/dL Urine Ketones (NEGATIVE) Urine Occult Blood (Negative) Urine Nitrate (Negative) Urine Bilirubin (NEGATIVE) Urine Urobilinogen (0.2) E.U./dL Ur Leukocyte Esterase (NEGATIVE) Urine RBC (0-5/HPF) Urine WBC (0-5/HPF) Ur Squamous Epith Cells (0-5/HPF) Urine Bacteria (None) Ur Culture Indicated? Chlamy pneumoniae PCR (Not Detect) Adenovirus (PCR) (Not Detect) B. pertussis DNA (PCR) (Not Detecte) B.parapertussis DNA PCR (Not Detecte) Coronavirus OC43 (PCR) (Not Detect) Coronavirus HKU1 (PCR) (Not Detect) Coronavirus 229E (PCR) (Not Detect) SARS-CoV-2 (PCR) Coronavirus NL63 (PCR) (Not Detect) Human Metapneumovir PCR (Not Detect) Influenza Type A (PCR) (Not Detect) Influenza Type B (PCR) (Not Detect) M. pneumoniae (PCR) (Not Detect) Parainfluenza 1 (PCR) (Not Detect) Parainfluenza 2 (PCR) (Not Detect) Parainfluenza 3 (PCR) (Not Detect) Parainfluenza 4 (PCR) (Not Detect) RSV (PCR) (Not Detect) Entero/Rhino (PCR) (Not Detect) Imaging Data Chest x-ray: Radiologist's Impression: PROCEDURE:? XR CHEST 1V ? INDICATIONS:? suspected sepsis ? TECHNIQUE:? One view of the chest was acquired.? ? COMPARISON:? None. ? FINDINGS:? ? Surgical changes and devices:? None.? ? Lungs and pleura:? Lungs are clear.? No pleural effusions or pneumothorax.? ? Mediastinum:? Mediastinal contours appear normal.? Heart size is normal.? ? Bones and chest wall:? No suspicious bony lesions.? Overlying soft tissues appear unremarkable.? ? IMPRESSION:? No acute cardiopulmonary findings ? ? ? Approved by: Víctor Simmons M.D. on 11/28/2022 at 11:26 ECG Data Interpretation: Sinus tachycardia 104 [place] interval 134 QRS [address] changes MDM Narrative Medical decision making narrative: Patient is 32-year-old male presenting today with respiratory distress tachypneic with borderline oxygen levels. He initially is given albuterol continuously and Solu-Medrol which does help. He was briefly tried on BiPAP but after a 40 mg of albuterol he started opening up and appearing better. He is positive for entero/rhinovirus x-ray is clear. He have leukocytosis with out evidence of a bacterial infection. PA O2 50, with 87% on room air. Possibly a mixed arterial venous gas according to respiratory although he still has some work of breathing although much improved. BNP is negative no evidence of fluid overload. He is febrile with upper respiratory like symptoms I think less likely to be pulmonary area embolism although it was considered. Dr. Silva accepts patient. No need for CT at this time. Discharge Plan Departure Patient Disposition: Admitted As Inpatient Clinical Impression: Hypoxia, Viral pneumonia Admit Date/Time: 11/28/22 15:31 Admit Provider: Mehul Silva
[2022-11-28] MEDS: SODIUM CHLORIDE 0.9% 1,000 ML 1000 ML IV (11:50)
[2022-11-28 11:52] LABS: PTT Partial Thromboplastin Tim 22 SECONDS (26-36)
[2022-11-28] MEDS: ALBUTEROL 2.5 MG/3 ML NEB (ADULT) 20 MG INH ×2 (11:52→15:29)
[2022-11-28 11:54] LABS: Alanine Aminotransferase 40 IU/L (<50); Albumin 4.3 g/dL (3.5-5.0); Alkaline Phosphatase 106 U/L (38-126); Aspartate Aminotransferase 45 IU/L (17-59); BUN Creatinine Ratio 11.8 (6-22); Bilirubin Total 0.7 mg/dL (0.2-1.3); Blood Urea Nitrogen 9 mg/dL (9-20); Calcium 8.9 mg/dL (8.4-10.2); Carbon Dioxide 27 mmol/L (22-32); Chloride 100 mmol/L (98-107); Estimated Glomerular Filt Rate > 60 mL/min (>60); Globulin 4.1 g/dL (1.7-4.1); Glucose 107 mg/dL (70-100); HEMOLYSIS < 15 (0-50); Lipase 118 U/L (23-300); Potassium 4.2 mmol/L (3.4-5.1); Sodium 137 mmol/L (137-145); Total Protein 8.4 g/dL (6.3-8.2)
[2022-11-28 11:57] LABS: Basophils Absolute Auto 200 /uL (0-100); Eosinophils Absolute Auto 500 /uL (0-450); Hematocrit 42.2 % (41-53); Hemoglobin 14.2 g/dL (13.5-17.5); Lymphocytes Absolute Auto 2000 /uL (1100-4500); Lymphocytes Percent Auto 11.6 % (25-40); Mean Corpuscular HGB Conc 33.7 % (30-36); Mean Corpuscular Hemoglobin 28.7 PG (26-34); Mean Corpuscular Volume 85.2 fL (80-100); Monocytes Absolute Auto 1300 /uL (0-900); Monocytes Percent Auto 7.3 % (3-14); Neutrophils Absolute Auto 13500 /uL (1500-7000); Neutrophils Percent Auto 77.1 % (50-75); Red Blood Cell Count 4.95 X10^6/uL (4.5-5.9); Red Cell Distribution Width 13.2 % (11.6-14.8); White Blood Cell Count 17.6 X10^3/uL (4.5-11.0)
[2022-11-28 12:04] LABS: Add Manual Diff / Slide Review SLIDE REVIEW
[2022-11-28 12:10] LABS: Procalcitonin 0.07 ng/mL (<0.5)
[2022-11-28 12:29] LABS: Platelet Count 324 X10^3/uL (150-400)
[2022-11-28 12:30] LABS: RBC Morphology Normal Morphology
[2022-11-28 12:33] LABS: NT-proBNP (BNP-Adult 18+) 37 pg/mL (<125); Troponin I < 0.012 ng/mL (0.01-0.034)
[2022-11-28 12:58] LABS: Adenovirus Not Detected (Not Detect); B. parapertussis Not Detected (Not Detecte); Bordetella pertussis Not Detected (Not Detecte); Chlamydophila pneumoniae Not Detected (Not Detect); Coronavirus 229E Not Detected (Not Detect); Coronavirus HKU1 Not Detected (Not Detect); Coronavirus NL 63 Not Detected (Not Detect); Coronavirus OC43 Not Detected (Not Detect); Human Metapneumovirus Not Detected (Not Detect); Human Rhinovirus/Enterovirus Detected (Not Detect); Influenza A Not Detected (Not Detect); Influenza B Not Detected (Not Detect); Mycoplasma pneumoniae Not Detected (Not Detect); Parainfluenza Virus 1 Not Detected (Not Detect); Parainfluenza Virus 2 Not Detected (Not Detect); Parainfluenza Virus 3 Not Detected (Not Detect); Parainfluenza Virus 4 Not Detected (Not Detect); Respiratory Syncytial Virus Not Detected (Not Detect); SARS- CoV-2 Not Detected (Not Detecte)
[2022-11-28 13:02] LABS: Magnesium 1.9 mg/dL (1.6-2.3)
--- NOTE | 2022-11-28 13:59 | PC.NURSE ---
Pt resting comfortably after neb treatments. Breathing is non-labored although tachypneic. Wheezes have diminished. Coarse crackles heard. Family at bedside.
[2022-11-28 14:37] LABS: Appearance Urine UA CLEAR; Bilirubin Urine UA NEGATIVE (NEGATIVE); Glucose Urine UA NEGATIVE (Negative); Ketones Urine UA NEGATIVE (NEGATIVE); Leukocyte Esterase Urine UA TRACE (NEGATIVE); Nitrite Urine UA NEGATIVE (Negative); Occult Blood Urine UA TRACE-INTACT (Negative); Protein Urine UA NEGATIVE (Negative); Urobilinogen Urine UA 0.2 E.U./dL (0.2)
[2022-11-28 14:38] LABS: Color Urine UA Yellow
[2022-11-28 14:49] LABS: RBC Urine 0-1/HPF (0-5/HPF)
[2022-11-28 14:50] LABS: Bacteria Urine Occasional (0-1); Culture Indicated Urine Specimen Cultured; Squamous Epithelial Cell Urine 0-1 /HPF (0-5/HPF); WBC Urine 1-5/HPF (0-5/HPF)
[2022-11-28 14:56] LABS: PCO2 ABG 32.4 mmHg (35-45); PO2 ABG 50 mmHg (80-100); pH ABG 7.44 (7.35-7.45)
[2022-11-28 14:59] LABS: HCO3 ABG 22 mmol/L (23-27)
[2022-11-28 15:00] LABS: Fractionated Inspired Oxygen 21; Oxygen Saturation ABG 87 % (95-100); TCO2 ABG 23 mmol/L (23-27)
--- NOTE | 2022-11-28 16:10 | PC.NURSE ---
Called report to PERRI Rodriguez
--- NOTE | 2022-11-28 17:46 | PC.ADMIT ---
[facility] Admission Note: The patient,Glen Henriquez,32 y/o, was given written information regarding hospital policies, unit procedures and contact persons. Patient's smoking status: Former smoker. Vital Signs - 8 hr 11/28/22 11:14 11/28/22 11:14 11/28/22 11:16 Temperature 101.7 F H Pulse Rate 100 H 100 H Respiratory Rate 40 H Blood Pressure 188/90 H 201/95 H Pulse Oximetry 93 Oxygen Delivery Method Room Air Oxygen Flow Rate Fraction of Inspired Oxygen 11/28/22 11:16 11/28/22 11:30 11/28/22 12:00 Temperature Pulse Rate 91 H 96 H 93 H Respiratory Rate 6 L 24 17 Blood Pressure Pulse Oximetry 92 91 94 Oxygen Delivery Method Oximask Oxygen Flow Rate 6 Fraction of Inspired Oxygen 11/28/22 12:19 11/28/22 12:19 11/28/22 12:30 Temperature Pulse Rate 94 H Respiratory Rate 25 H Blood Pressure 130/65 140/71 Pulse Oximetry 94 Oxygen Delivery Method Oxygen Flow Rate Fraction of Inspired Oxygen 11/28/22 12:30 11/28/22 13:00 11/28/22 13:01 Temperature Pulse Rate 102 H 111 H Respiratory Rate 21 24 Blood Pressure 173/85 H Pulse Oximetry 95 95 Oxygen Delivery Method Oxygen Flow Rate Fraction of Inspired Oxygen 11/28/22 13:01 11/28/22 13:15 11/28/22 13:30 Temperature Pulse Rate 112 H 112 H 109 H Respiratory Rate 21 42 H 33 H Blood Pressure Pulse Oximetry 95 95 94 Oxygen Delivery Method Oxygen Flow Rate Fraction of Inspired Oxygen 11/28/22 13:31 11/28/22 13:31 11/28/22 13:45 Temperature Pulse Rate 109 H 113 H Respiratory Rate 36 H 17 Blood Pressure 147/70 H Pulse Oximetry 94 Oxygen Delivery Method Room Air Oxygen Flow Rate Fraction of Inspired Oxygen 11/28/22 14:00 11/28/22 11:50 11/28/22 13:00 Temperature Pulse Rate 107 H 80 108 H Respiratory Rate 30 H 24 24 Blood Pressure Pulse Oximetry 91 92 95 Oxygen Delivery Method Room Air Room Air Aerosol Mask Oxygen Flow Rate 6 Fraction of Inspired Oxygen 11/28/22 15:39 11/28/22 12:00 11/28/22 14:15 Temperature Pulse Rate 104 H 109 H Respiratory Rate 26 H 28 H Blood Pressure 132/59 L Pulse Oximetry 96 92 Oxygen Delivery Method Aerosol Mask Oxygen Flow Rate 10 Fraction of Inspired Oxygen 28 11/28/22 14:17 11/28/22 14:17 11/28/22 14:30 Temperature Pulse Rate 109 H 108 H Respiratory Rate 23 22 Blood Pressure 132/59 L Pulse Oximetry 91 96 Oxygen Delivery Method Oxygen Flow Rate Fraction of Inspired Oxygen 11/28/22 14:45 11/28/22 15:00 11/28/22 15:15 Temperature Pulse Rate 105 H 108 H 100 H Respiratory Rate Blood Pressure Pulse Oximetry 95 92 92 Oxygen Delivery Method Oxygen Flow Rate Fraction of Inspired Oxygen 11/28/22 15:30 11/28/22 15:45 11/28/22 15:46 Temperature Pulse Rate 101 H 108 H Respiratory Rate 23 Blood Pressure 101/58 L Pulse Oximetry 95 95 Oxygen Delivery Method BiPAP Oxygen Flow Rate Fraction of Inspired Oxygen 11/28/22 15:46 11/28/22 16:00 11/28/22 16:00 Temperature Pulse Rate 109 H 111 H Respiratory Rate 22 35 H Blood Pressure 138/60 Pulse Oximetry 96 94 Oxygen Delivery Method Oxygen Flow Rate Fraction of Inspired Oxygen 11/28/22 15:39 11/28/22 16:15 11/28/22 16:30 Temperature Pulse Rate 114 H 117 H Respiratory Rate Blood Pressure Pulse Oximetry 94 93 Oxygen Delivery Method Room Air Oxygen Flow Rate Fraction of Inspired Oxygen 11/28/22 16:51 11/28/22 16:57 11/28/22 16:57 Temperature Pulse Rate 121 H 119 H Respiratory Rate 26 H Blood Pressure 143/65 H Pulse Oximetry 95 94 Oxygen Delivery Method Oxygen Flow Rate Fraction of Inspired Oxygen 11/28/22 17:00 11/28/22 17:15 11/28/22 17:01 Temperature 98.4 F Pulse Rate 119 H 116 H Respiratory Rate 39 H 43 H Blood Pressure Pulse Oximetry 92 91 Oxygen Delivery Method Oxygen Flow Rate Fraction of Inspired Oxygen Pt arrived via gurney from ED, able to slide on to bed, RT at bedside, pt not on any oxygen or BIPAP saturations in the 91-94%, RR in the 30's, connected to all monitoring equipment (see vitals for monitor capture), oriented to room and call light system. Able to make needs known, call light within reach.
--- NOTE | 2022-11-28 17:53 | P.HP_ITS ---
History of Present Illness History of Present Illness Date Patient Seen: 11/28/22 Time Patient Seen: 15:00 Chief complaint: Allergies/Cold/Feverish/Cough/SOB Narrative: Mr. Henriquez is a 32M with PMH of asthma, morbid obesity who presents to the hospital with cough, fevers, shortness of breath. He states he developed a cold a few days ago. He started feeling much worse today with difficulty breathing. He has no chest pain. He is coughing up some phlegm. He did smoke for years but has quit. He does not have any medications for asthma at home, and has never be en hospitalized with an asthma exacerbation. In the ED workup was done, vitals notable for fever to 101.7, heart rate in 100s, respiratory rate in 40s, sats in low 90s. Peak flow was 280. Labs reviewed by me and notable for ABG with pH 7.44, paO2 50. WBC 17.6. Lactate 2.0. Procal 0.07. Urine negative for infection. COVID negative. Enterovirus PCR positive. Chest xray reviewed by me and with only mild interstitial infiltrates per my read. He was ordered for albuterol. He was placed on BIPAP due to increased work of breathing. He was given additional albuterol. He was ordered for steroids and admitted for further treatment. [facility] Medical History Acquired urinary meatal stenosis BXO (balanitis xerotica obliterans) History of high blood pressure Urethral injury Family History Father Cancer Hypertension Social History marital status: number of children: 4 household members: spouse Smoking Status: Former smoker Tobacco: How many years used: 3 alcohol intake: former caffeine: Yes Type(s) of exercise: none Meds Home Medications and Allergies Home Medications Medication Instructions Recorded Confirmed Type No Known Home Medications 11/28/22 11/28/22 History Allergies Allergy/AdvReac Type Severity Reaction Status Date / Time No Known Drug Allergies Allergy Verified 11/28/22 15:35 Review of Systems Review of Systems Narrative: 14 systems reviewed and negative aside from what is noted in HPI Exam Vital Signs (past 8 hours): - 11/28/22 11:14 11/28/22 11:14 11/28/22 11:16 Temperature 101.7 F H Pulse Rate 100 H 100 H Respiratory Rate 40 H Blood Pressure 188/90 H 201/95 H Pulse Oximetry 93 Oxygen Delivery Method Room Air Oxygen Flow Rate Fraction of Inspired Oxygen 11/28/22 11:16 11/28/22 11:30 11/28/22 12:00 Temperature Pulse Rate 91 H 96 H 93 H Respiratory Rate 6 L 24 17 Blood Pressure Pulse Oximetry 92 91 94 Oxygen Delivery Method Oximask Oxygen Flow Rate 6 Fraction of Inspired Oxygen 11/28/22 12:19 11/28/22 12:19 11/28/22 12:30 Temperature Pulse Rate 94 H Respiratory Rate 25 H Blood Pressure 130/65 140/71 Pulse Oximetry 94 Oxygen Delivery Method Oxygen Flow Rate Fraction of Inspired Oxygen 11/28/22 12:30 11/28/22 13:00 11/28/22 13:01 Temperature Pulse Rate 102 H 111 H Respiratory Rate 21 24 Blood Pressure 173/85 H Pulse Oximetry 95 95 Oxygen Delivery Method Oxygen Flow Rate Fraction of Inspired Oxygen 11/28/22 13:01 11/28/22 13:15 11/28/22 13:30 Temperature Pulse Rate 112 H 112 H 109 H Respiratory Rate 21 42 H 33 H Blood Pressure Pulse Oximetry 95 95 94 Oxygen Delivery Method Oxygen Flow Rate Fraction of Inspired Oxygen 11/28/22 13:31 11/28/22 13:31 11/28/22 13:45 Temperature Pulse Rate 109 H 113 H Respiratory Rate 36 H 17 Blood Pressure 147/70 H Pulse Oximetry 94 Oxygen Delivery Method Room Air Oxygen Flow Rate Fraction of Inspired Oxygen 11/28/22 14:00 11/28/22 11:50 11/28/22 13:00 Temperature Pulse Rate 107 H 80 108 H Respiratory Rate 30 H 24 24 Blood Pressure Pulse Oximetry 91 92 95 Oxygen Delivery Method Room Air Room Air Aerosol Mask Oxygen Flow Rate 6 Fraction of Inspired Oxygen 11/28/22 15:39 11/28/22 12:00 11/28/22 14:15 Temperature Pulse Rate 104 H 109 H Respiratory Rate 26 H 28 H Blood Pressure 132/59 L Pulse Oximetry 96 92 Oxygen Delivery Method Aerosol Mask Oxygen Flow Rate 10 Fraction of Inspired Oxygen 28 11/28/22 14:17 11/28/22 14:17 11/28/22 14:30 Temperature Pulse Rate 109 H 108 H Respiratory Rate 23 22 Blood Pressure 132/59 L Pulse Oximetry 91 96 Oxygen Delivery Method Oxygen Flow Rate Fraction of Inspired Oxygen 11/28/22 14:45 11/28/22 15:00 11/28/22 15:15 Temperature Pulse Rate 105 H 108 H 100 H Respiratory Rate Blood Pressure Pulse Oximetry 95 92 92 Oxygen Delivery Method Oxygen Flow Rate Fraction of Inspired Oxygen 11/28/22 15:30 11/28/22 15:45 11/28/22 15:46 Temperature Pulse Rate 101 H 108 H Respiratory Rate 23 Blood Pressure 101/58 L Pulse Oximetry 95 95 Oxygen Delivery Method BiPAP Oxygen Flow Rate Fraction of Inspired Oxygen 11/28/22 15:46 11/28/22 16:00 11/28/22 16:00 Temperature Pulse Rate 109 H 111 H Respiratory Rate 22 35 H Blood Pressure 138/60 Pulse Oximetry 96 94 Oxygen Delivery Method Oxygen Flow Rate Fraction of Inspired Oxygen 11/28/22 15:39 11/28/22 16:15 11/28/22 16:30 Temperature Pulse Rate 114 H 117 H Respiratory Rate Blood Pressure Pulse Oximetry 94 93 Oxygen Delivery Method Room Air Oxygen Flow Rate Fraction of Inspired Oxygen 11/28/22 16:51 11/28/22 16:57 11/28/22 16:57 Temperature Pulse Rate 121 H 119 H Respiratory Rate 26 H Blood Pressure 143/65 H Pulse Oximetry 95 94 Oxygen Delivery Method Oxygen Flow Rate Fraction of Inspired Oxygen 11/28/22 17:00 11/28/22 17:15 11/28/22 17:01 Temperature 98.4 F Pulse Rate 119 H 116 H Respiratory Rate 39 H 43 H Blood Pressure Pulse Oximetry 92 91 Oxygen Delivery Method Oxygen Flow Rate Fraction of Inspired Oxygen Fraction of Inspired Oxygen 28 Oxygen Delivery Method Room Air Oxygen Flow Rate 10 Narrative Exam Narrative: GEN: in respiratory distress HEENT: moist mucous membranes PULM: wheezes, bilaterally CV: tachycardic, no murmurs ABD: soft, nontender, nondistended, no organomegaly EXT: warm and well perfused, no edema Objective Labs 11/28/22 11:31 11/28/22 11:31 Labs: Laboratory Results - last 24 hr 11/28/22 11/28/22 11/28/22 11:20 11:20 11:31 WBC 17.6 H RBC 4.95 Hgb 14.2 Hct 42.2 MCV 85.2 MCH 28.7 MCHC 33.7 RDW 13.2 Plt Count 324 Neut % (Auto) 77.1 H Lymph % (Auto) 11.6 L [place] % (Auto) 7.3 Eos % (Auto) 3.0 Baso % (Auto) 1.0 Neut # (Auto) 52880 H Lymph # (Auto) 2000 [place] # (Auto) 1300 H Eos # (Auto) 500 H Baso # (Auto) 200 H RBC Morphology Normal morphology PT INR APTT ABG pH ABG pCO2 ABG pO2 ABG HCO3 ABG Total CO2 ABG O2 Saturation ABG Base Excess FiO2 Sodium Potassium Chloride Carbon Dioxide BUN Creatinine Estimated GFR BUN/Creatinine Ratio Glucose Lactate Calcium Magnesium Total Bilirubin AST ALT Alkaline Phosphatase Troponin I NT-Pro-B Natriuret Pep Total Protein Albumin Globulin Albumin/Globulin Ratio Lipase Procalcitonin Urine Color Urine Appearance Urine pH Ur Specific [place] Urine Protein Urine Glucose (UA) Urine Ketones Urine Occult Blood Urine Nitrate Urine Bilirubin Urine Urobilinogen Ur Leukocyte Esterase Urine RBC Urine WBC Ur Squamous Epith Cells Urine Bacteria Ur Culture Indicated? Chlamy pneumoniae PCR Not detected Adenovirus (PCR) Not detected B. pertussis DNA (PCR) Not detected B.parapertussis DNA PCR Not detected Coronavirus OC43 (PCR) Not detected Coronavirus HKU1 (PCR) Not detected Coronavirus 229E (PCR) Not detected SARS-CoV-2 (PCR) Cancelled Not detected Coronavirus NL63 (PCR) Not detected Human Metapneumovir PCR Not detected Influenza Type A (PCR) Not detected Influenza Type B (PCR) Not detected M. pneumoniae (PCR) Not detected Parainfluenza 1 (PCR) Not detected Parainfluenza 2 (PCR) Not detected Parainfluenza 3 (PCR) Not detected Parainfluenza 4 (PCR) Not detected RSV (PCR) Not detected Entero/Rhino (PCR) Detected H 11/28/22 11/28/22 11/28/22 11:31 11:31 11:31 WBC RBC Hgb Hct MCV MCH MCHC RDW Plt Count Neut % (Auto) Lymph % (Auto) [place] % (Auto) Eos % (Auto) Baso % (Auto) Neut # (Auto) Lymph # (Auto) [place] # (Auto) Eos # (Auto) Baso # (Auto) RBC Morphology PT 12.2 INR 1.1 APTT 22 L ABG pH ABG pCO2 ABG pO2 ABG HCO3 ABG Total CO2 ABG O2 Saturation ABG Base Excess FiO2 Sodium 137 Potassium 4.2 Chloride 100 Carbon Dioxide 27 BUN 9 Creatinine 0.76 Estimated GFR > 60 BUN/Creatinine Ratio 11.8 Glucose 107 H Lactate 2.0 Calcium 8.9 Magnesium Total Bilirubin 0.7 AST 45 ALT 40 Alkaline Phosphatase 106 Troponin I NT-Pro-B Natriuret Pep Total Protein 8.4 H Albumin 4.3 Globulin 4.1 Albumin/Globulin Ratio 1.0 Lipase 118 Procalcitonin 0.07 Urine Color Urine Appearance Urine pH Ur Specific [place] Urine Protein Urine Glucose (UA) Urine Ketones Urine Occult Blood Urine Nitrate Urine Bilirubin Urine Urobilinogen Ur Leukocyte Esterase Urine RBC Urine WBC Ur Squamous Epith Cells Urine Bacteria Ur Culture Indicated? Chlamy pneumoniae PCR Adenovirus (PCR) B. pertussis DNA (PCR) B.parapertussis DNA PCR Coronavirus OC43 (PCR) Coronavirus HKU1 (PCR) Coronavirus 229E (PCR) SARS-CoV-2 (PCR) Coronavirus NL63 (PCR) Human Metapneumovir PCR Influenza Type A (PCR) Influenza Type B (PCR) M. pneumoniae (PCR) Parainfluenza 1 (PCR) Parainfluenza 2 (PCR) Parainfluenza 3 (PCR) Parainfluenza 4 (PCR) RSV (PCR) Entero/Rhino (PCR) 11/28/22 11/28/22 11/28/22 11:31 11:31 12:55 WBC RBC Hgb Hct MCV MCH MCHC RDW Plt Count Neut % (Auto) Lymph % (Auto) [place] % (Auto) Eos % (Auto) Baso % (Auto) Neut # (Auto) Lymph # (Auto) [place] # (Auto) Eos # (Auto) Baso # (Auto) RBC Morphology PT INR APTT ABG pH ABG pCO2 ABG pO2 ABG HCO3 ABG Total CO2 ABG O2 Saturation ABG Base Excess FiO2 Sodium Potassium Chloride Carbon Dioxide BUN Creatinine Estimated GFR BUN/Creatinine Ratio Glucose Lactate Calcium Magnesium 1.9 Total Bilirubin AST ALT Alkaline Phosphatase Troponin I < 0.012 NT-Pro-B Natriuret Pep 37 Total Protein Albumin Globulin Albumin/Globulin Ratio Lipase Procalcitonin Urine Color Yellow Urine Appearance Clear Urine pH 7.0 Ur Specific [place] 1.010 Urine Protein Negative Urine Glucose (UA) Negative Urine Ketones Negative Urine Occult Blood Trace-intact Urine Nitrate Negative Urine Bilirubin Negative Urine Urobilinogen 0.2 Ur Leukocyte Esterase Trace H Urine RBC 0-1/hpf Urine WBC 1-5/hpf Ur Squamous Epith Cells 0-1 /hpf Urine Bacteria Occasional (0-1) Ur Culture Indicated? Specimen cultured Chlamy pneumoniae PCR Adenovirus (PCR) B. pertussis DNA (PCR) B.parapertussis DNA PCR Coronavirus OC43 (PCR) Coronavirus HKU1 (PCR) Coronavirus 229E (PCR) SARS-CoV-2 (PCR) Coronavirus NL63 (PCR) Human Metapneumovir PCR Influenza Type A (PCR) Influenza Type B (PCR) M. pneumoniae (PCR) Parainfluenza 1 (PCR) Parainfluenza 2 (PCR) Parainfluenza 3 (PCR) Parainfluenza 4 (PCR) RSV (PCR) Entero/Rhino (PCR) 11/28/22 14:05 WBC RBC Hgb Hct MCV MCH MCHC RDW Plt Count Neut % (Auto) Lymph % (Auto) [place] % (Auto) Eos % (Auto) Baso % (Auto) Neut # (Auto) Lymph # (Auto) [place] # (Auto) Eos # (Auto) Baso # (Auto) RBC Morphology PT INR APTT ABG pH 7.44 ABG pCO2 32.4 L ABG pO2 50 L ABG HCO3 22 L ABG Total CO2 23 ABG O2 Saturation 87 L ABG Base Excess -2.0 FiO2 21 Sodium Potassium Chloride Carbon Dioxide BUN Creatinine Estimated GFR BUN/Creatinine Ratio Glucose Lactate Calcium Magnesium Total Bilirubin AST ALT Alkaline Phosphatase Troponin I NT-Pro-B Natriuret Pep Total Protein Albumin Globulin Albumin/Globulin Ratio Lipase Procalcitonin Urine Color Urine Appearance Urine pH Ur Specific [place] Urine Protein Urine Glucose (UA) Urine Ketones Urine Occult Blood Urine Nitrate Urine Bilirubin Urine Urobilinogen Ur Leukocyte Esterase Urine RBC Urine WBC Ur Squamous Epith Cells Urine Bacteria Ur Culture Indicated? Chlamy pneumoniae PCR Adenovirus (PCR) B. pertussis DNA (PCR) B.parapertussis DNA PCR Coronavirus OC43 (PCR) Coronavirus HKU1 (PCR) Coronavirus 229E (PCR) SARS-CoV-2 (PCR) Coronavirus NL63 (PCR) Human Metapneumovir PCR Influenza Type A (PCR) Influenza Type B (PCR) M. pneumoniae (PCR) Parainfluenza 1 (PCR) Parainfluenza 2 (PCR) Parainfluenza 3 (PCR) Parainfluenza 4 (PCR) RSV (PCR) Entero/Rhino (PCR) Assessment & Plan Assessment & Plan narrative: 1. Acute hypoxemic respiratory failure secondary to acute asthma exacerbation secondary to viral pneumonia -presented with hypoxemia as documented with pao2 in 50s, with increased work of breathing required bipap -respiratory pcr panel positive for enterovirus -initial peak flow severely low at 280 -symptomatically improved with nebulizers and steroids -continue oxygen as needed -monitor in ICU due to low peak flow -continue steroids and nebulizers -obesity likely complicating respiratory picture, RT eval for possible CPAP overnight -will likely need pulmonology referral or sleep study once discharged I have discussed plan and obtained history with patient and family at bedside. I have discussed plan of care with ED physician, RT, and bedside nurse. I have reviewed labs, imaging. CODE: Full Proxy: Kristina Florence, spouse Quality VTE Deep Vein Thrombosis/Pulmonary Embolism Present on Admission: No
[2022-11-28 18:25] LABS: MRSA (Nasal) PCR Not Detected (Not Detect)
--- NOTE | 2022-11-28 19:26 | DI.CT.S_ITS ---
PROCEDURE: CT ANGIO CHEST PE PROTOCOL INDICATIONS: respiratory failure, PE? TECHNIQUE: After the administration of intravenous contrast, 2 mm thick sections acquired from the pulmonary apices to the posterior costophrenic angles. 3-dimensional maximum intensity projection (MIP) coronal and sagittal reformats were then acquired through the thorax. For radiation dose reduction, the following was used: automated exposure control, adjustment of mA and/or kV according to patient size. COMPARISON: None. FINDINGS: Image quality: Quality of pulmonary artery visualization is somewhat limited by patient body habitus. Pulmonary arteries: Pulmonary arteries are normal in size, and demonstrate no intraluminal filling defects to suggest central pulmonary embolism. Lungs and pleura: Lungs are clear superiorly but at the lung bases demonstrate mild patchy alveolar consolidation, potentially aspiration or consolidative pneumonia. No pleural effusions or pneumothorax. Central and peripheral airways are patent. Mediastinum: Heart size is normal, without pericardial effusion. No mediastinal or hilar adenopathy. Thoracic aorta is normal in caliber and enhancement. Esophagus is normal in caliber, without hiatal hernia. Bones and chest wall: No suspicious bony lesions. Ribs and thoracic spine appear intact throughout. Thyroid gland appears normal where well seen. No axillary or supraclavicular adenopathy. Abdomen: Visualized upper abdominal solid organs appear normal in the early arterial phase of enhancement except at the liver which appear sleep fatty in rated. IMPRESSION: Bilateral patchy alveolar opacification at each lung base, potentially pneumonia or aspiration. No pulmonary embolus seen. Diffuse fatty infiltration throughout the liver. Dictated by: Jaime Tran M.D. on 11/28/2022 at 20:57 Approved by: Jaime Tran M.D. on 11/28/2022 at 21:01
--- NOTE | 2022-11-28 19:41 | PM.CN.EICU ---
History of Present Illness Consult details IF CAMERA ACTIVATED, patient seen via real-time interactive audiovisual communication: Camera activated Chief complaint: Allergies/Cold/Feverish/Cough/SOB Consent obtained for tele-decorating consultant care: Yes Patient Location: ICU Provider location (State): Other participants/roles: MD & RN Narrative: Mr. Henriquez is a 32 yr old male with PMH of asthma & morbid obesity, have not seen a doctor for many years he presented with cough for couple of days with clear sputum, fevers, ?chills & shortness of breath that started today, ?work up positive for rhino virus infection, CXR showed bilateral interstitial infiltrates, he was placed on BIPAP for increased work of breathing Assessment: Acute hypoxic resp failure Viral PNA / Rhino Asthma exacerbation Morbid obesity Rec: Currently no acute distress, but to avoiding tiring out, recommend switching to ventimask to BiPAP , adjust fio2 to achieve sat > 92, currently sat 94% on 3 L ventimask Stat CTA lung 2 D echo Agree with IV steroid and broad spectrum antibiotics, f/u atypical serology, ?resp and blood Cx GI & chemical DVT ppx Discussed with the staff (MD & RN) CCT 40 min [facility] Medical History Acquired urinary meatal stenosis BXO (balanitis xerotica obliterans) History of high blood pressure Urethral injury Family History Father Cancer Hypertension Social History marital status: number of children: 4 household members: spouse Smoking Status: Former smoker Tobacco: How many years used: 3 alcohol intake: former caffeine: Yes Type(s) of exercise: none Current Medications Current Medications Medications: Home Medications No Known Home Medications 11/28/22 [History Confirmed 11/28/22] Visit Medications (administered) Generic Name Dose Route Start Last Admin Trade Name Freq PRN Reason Stop Dose Admin Albuterol 2.5 mg 11/28/22 19:00 11/28/22 18:37 Albuterol 2.5 Mg/3 Ml Neb (Adult) INH Not Given [id number] GABINO Albuterol/Ipratropium 3 ml 11/28/22 11:24 11/28/22 11:30 Albuterol/Ipratropium 3 Ml Ampul INH 3 ml Q1H PRN Administration Shortness Of Breath Exam Vital Signs (past 8 hours): - 11/28/22 12:00 11/28/22 12:19 11/28/22 12:19 Temperature Pulse Rate 93 H 94 H Respiratory Rate 17 25 H Blood Pressure 130/65 Pulse Oximetry 94 94 Oxygen Delivery Method Oximask Oxygen Flow Rate 6 Fraction of Inspired Oxygen 11/28/22 12:30 11/28/22 12:30 11/28/22 13:00 Temperature Pulse Rate 102 H 111 H Respiratory Rate 21 24 Blood Pressure 140/71 Pulse Oximetry 95 95 Oxygen Delivery Method Oxygen Flow Rate Fraction of Inspired Oxygen 11/28/22 13:01 11/28/22 13:01 11/28/22 13:15 Temperature Pulse Rate 112 H 112 H Respiratory Rate 21 42 H Blood Pressure 173/85 H Pulse Oximetry 95 95 Oxygen Delivery Method Oxygen Flow Rate Fraction of Inspired Oxygen 11/28/22 13:30 11/28/22 13:31 11/28/22 13:31 Temperature Pulse Rate 109 H 109 H Respiratory Rate 33 H 36 H Blood Pressure 147/70 H Pulse Oximetry 94 94 Oxygen Delivery Method Room Air Oxygen Flow Rate Fraction of Inspired Oxygen 11/28/22 13:45 11/28/22 14:00 11/28/22 11:50 Temperature Pulse Rate 113 H 107 H 80 Respiratory Rate 17 30 H 24 Blood Pressure Pulse Oximetry 91 92 Oxygen Delivery Method Room Air Room Air Oxygen Flow Rate Fraction of Inspired Oxygen 11/28/22 13:00 11/28/22 15:39 11/28/22 12:00 Temperature Pulse Rate 108 H 104 H Respiratory Rate 24 26 H Blood Pressure 132/59 L Pulse Oximetry 95 96 Oxygen Delivery Method Aerosol Mask Aerosol Mask Oxygen Flow Rate 6 10 Fraction of Inspired Oxygen 28 11/28/22 14:15 11/28/22 14:17 11/28/22 14:17 Temperature Pulse Rate 109 H 109 H Respiratory Rate 28 H 23 Blood Pressure 132/59 L Pulse Oximetry 92 91 Oxygen Delivery Method Oxygen Flow Rate Fraction of Inspired Oxygen 11/28/22 14:30 11/28/22 14:45 11/28/22 15:00 Temperature Pulse Rate 108 H 105 H 108 H Respiratory Rate 22 Blood Pressure Pulse Oximetry 96 95 92 Oxygen Delivery Method Oxygen Flow Rate Fraction of Inspired Oxygen 11/28/22 15:15 11/28/22 15:30 11/28/22 15:45 Temperature Pulse Rate 100 H 101 H 108 H Respiratory Rate 23 Blood Pressure Pulse Oximetry 92 95 95 Oxygen Delivery Method BiPAP Oxygen Flow Rate Fraction of Inspired Oxygen 11/28/22 15:46 11/28/22 15:46 11/28/22 16:00 Temperature Pulse Rate 109 H Respiratory Rate 22 Blood Pressure 101/58 L 138/60 Pulse Oximetry 96 Oxygen Delivery Method Oxygen Flow Rate Fraction of Inspired Oxygen 11/28/22 16:00 11/28/22 15:39 11/28/22 16:15 Temperature Pulse Rate 111 H 114 H Respiratory Rate 35 H Blood Pressure Pulse Oximetry 94 94 Oxygen Delivery Method Room Air Oxygen Flow Rate Fraction of Inspired Oxygen 11/28/22 16:30 11/28/22 16:51 11/28/22 16:57 Temperature Pulse Rate 117 H 121 H Respiratory Rate Blood Pressure 143/65 H Pulse Oximetry 93 95 Oxygen Delivery Method Oxygen Flow Rate Fraction of Inspired Oxygen 11/28/22 16:57 11/28/22 17:00 11/28/22 17:15 Temperature Pulse Rate 119 H 119 H 116 H Respiratory Rate 26 H 39 H 43 H Blood Pressure Pulse Oximetry 94 92 91 Oxygen Delivery Method Oxygen Flow Rate Fraction of Inspired Oxygen 11/28/22 17:01 Temperature 98.4 F Pulse Rate Respiratory Rate Blood Pressure Pulse Oximetry Oxygen Delivery Method Oxygen Flow Rate Fraction of Inspired Oxygen Fraction of Inspired Oxygen 28 Oxygen Delivery Method Room Air Oxygen Flow Rate 10 Objective Labs 11/28/22 11:31 11/28/22 11:31 Labs: Laboratory Results - last 24 hr 11/28/22 11/28/22 11/28/22 11:20 11:20 11:31 WBC 17.6 H RBC 4.95 Hgb 14.2 Hct 42.2 MCV 85.2 MCH 28.7 MCHC 33.7 RDW 13.2 Plt Count 324 Neut % (Auto) 77.1 H Lymph % (Auto) 11.6 L [place] % (Auto) 7.3 Eos % (Auto) 3.0 Baso % (Auto) 1.0 Neut # (Auto) 19126 H Lymph # (Auto) 2000 [place] # (Auto) 1300 H Eos # (Auto) 500 H Baso # (Auto) 200 H RBC Morphology Normal morphology PT INR APTT ABG pH ABG pCO2 ABG pO2 ABG HCO3 ABG Total CO2 ABG O2 Saturation ABG Base Excess FiO2 Sodium Potassium Chloride Carbon Dioxide BUN Creatinine Estimated GFR BUN/Creatinine Ratio Glucose Lactate Calcium Magnesium Total Bilirubin AST ALT Alkaline Phosphatase Troponin I NT-Pro-B Natriuret Pep Total Protein Albumin Globulin Albumin/Globulin Ratio Lipase Procalcitonin Urine Color Urine Appearance Urine pH Ur Specific [place] Urine Protein Urine Glucose (UA) Urine Ketones Urine Occult Blood Urine Nitrate Urine Bilirubin Urine Urobilinogen Ur Leukocyte Esterase Urine RBC Urine WBC Ur Squamous Epith Cells Urine Bacteria Ur Culture Indicated? Nasal Screen MRSA (PCR) Chlamy pneumoniae PCR Not detected Adenovirus (PCR) Not detected B. pertussis DNA (PCR) Not detected B.parapertussis DNA PCR Not detected Coronavirus OC43 (PCR) Not detected Coronavirus HKU1 (PCR) Not detected Coronavirus 229E (PCR) Not detected SARS-CoV-2 (PCR) Cancelled Not detected Coronavirus NL63 (PCR) Not detected Human Metapneumovir PCR Not detected Influenza Type A (PCR) Not detected Influenza Type B (PCR) Not detected M. pneumoniae (PCR) Not detected Parainfluenza 1 (PCR) Not detected Parainfluenza 2 (PCR) Not detected Parainfluenza 3 (PCR) Not detected Parainfluenza 4 (PCR) Not detected RSV (PCR) Not detected Entero/Rhino (PCR) Detected H 11/28/22 11/28/22 11/28/22 11:31 11:31 11:31 WBC RBC Hgb Hct MCV MCH MCHC RDW Plt Count Neut % (Auto) Lymph % (Auto) [place] % (Auto) Eos % (Auto) Baso % (Auto) Neut # (Auto) Lymph # (Auto) [place] # (Auto) Eos # (Auto) Baso # (Auto) RBC Morphology PT 12.2 INR 1.1 APTT 22 L ABG pH ABG pCO2 ABG pO2 ABG HCO3 ABG Total CO2 ABG O2 Saturation ABG Base Excess FiO2 Sodium 137 Potassium 4.2 Chloride 100 Carbon Dioxide 27 BUN 9 Creatinine 0.76 Estimated GFR > 60 BUN/Creatinine Ratio 11.8 Glucose 107 H Lactate 2.0 Calcium 8.9 Magnesium Total Bilirubin 0.7 AST 45 ALT 40 Alkaline Phosphatase 106 Troponin I NT-Pro-B Natriuret Pep Total Protein 8.4 H Albumin 4.3 Globulin 4.1 Albumin/Globulin Ratio 1.0 Lipase 118 Procalcitonin 0.07 Urine Color Urine Appearance Urine pH Ur Specific [place] Urine Protein Urine Glucose (UA) Urine Ketones Urine Occult Blood Urine Nitrate Urine Bilirubin Urine Urobilinogen Ur Leukocyte Esterase Urine RBC Urine WBC Ur Squamous Epith Cells Urine Bacteria Ur Culture Indicated? Nasal Screen MRSA (PCR) Chlamy pneumoniae PCR Adenovirus (PCR) B. pertussis DNA (PCR) B.parapertussis DNA PCR Coronavirus OC43 (PCR) Coronavirus HKU1 (PCR) Coronavirus 229E (PCR) SARS-CoV-2 (PCR) Coronavirus NL63 (PCR) Human Metapneumovir PCR Influenza Type A (PCR) Influenza Type B (PCR) M. pneumoniae (PCR) Parainfluenza 1 (PCR) Parainfluenza 2 (PCR) Parainfluenza 3 (PCR) Parainfluenza 4 (PCR) RSV (PCR) Entero/Rhino (PCR) 11/28/22 11/28/22 11/28/22 11:31 11:31 12:55 WBC RBC Hgb Hct MCV MCH MCHC RDW Plt Count Neut % (Auto) Lymph % (Auto) [place] % (Auto) Eos % (Auto) Baso % (Auto) Neut # (Auto) Lymph # (Auto) [place] # (Auto) Eos # (Auto) Baso # (Auto) RBC Morphology PT INR APTT ABG pH ABG pCO2 ABG pO2 ABG HCO3 ABG Total CO2 ABG O2 Saturation ABG Base Excess FiO2 Sodium Potassium Chloride Carbon Dioxide BUN Creatinine Estimated GFR BUN/Creatinine Ratio Glucose Lactate Calcium Magnesium 1.9 Total Bilirubin AST ALT Alkaline Phosphatase Troponin I < 0.012 NT-Pro-B Natriuret Pep 37 Total Protein Albumin Globulin Albumin/Globulin Ratio Lipase Procalcitonin Urine Color Yellow Urine Appearance Clear Urine pH 7.0 Ur Specific [place] 1.010 Urine Protein Negative Urine Glucose (UA) Negative Urine Ketones Negative Urine Occult Blood Trace-intact Urine Nitrate Negative Urine Bilirubin Negative Urine Urobilinogen 0.2 Ur Leukocyte Esterase Trace H Urine RBC 0-1/hpf Urine WBC 1-5/hpf Ur Squamous Epith Cells 0-1 /hpf Urine Bacteria Occasional (0-1) Ur Culture Indicated? Specimen cultured Nasal Screen MRSA (PCR) Chlamy pneumoniae PCR Adenovirus (PCR) B. pertussis DNA (PCR) B.parapertussis DNA PCR Coronavirus OC43 (PCR) Coronavirus HKU1 (PCR) Coronavirus 229E (PCR) SARS-CoV-2 (PCR) Coronavirus NL63 (PCR) Human Metapneumovir PCR Influenza Type A (PCR) Influenza Type B (PCR) M. pneumoniae (PCR) Parainfluenza 1 (PCR) Parainfluenza 2 (PCR) Parainfluenza 3 (PCR) Parainfluenza 4 (PCR) RSV (PCR) Entero/Rhino (PCR) 11/28/22 11/28/22 14:05 16:59 WBC RBC Hgb Hct MCV MCH MCHC RDW Plt Count Neut % (Auto) Lymph % (Auto) [place] % (Auto) Eos % (Auto) Baso % (Auto) Neut # (Auto) Lymph # (Auto) [place] # (Auto) Eos # (Auto) Baso # (Auto) RBC Morphology PT INR APTT ABG pH 7.44 ABG pCO2 32.4 L ABG pO2 50 L ABG HCO3 22 L ABG Total CO2 23 ABG O2 Saturation 87 L ABG Base Excess -2.0 FiO2 21 Sodium Potassium Chloride Carbon Dioxide BUN Creatinine Estimated GFR BUN/Creatinine Ratio Glucose Lactate Calcium Magnesium Total Bilirubin AST ALT Alkaline Phosphatase Troponin I NT-Pro-B Natriuret Pep Total Protein Albumin Globulin Albumin/Globulin Ratio Lipase Procalcitonin Urine Color Urine Appearance Urine pH Ur Specific [place] Urine Protein Urine Glucose (UA) Urine Ketones Urine Occult Blood Urine Nitrate Urine Bilirubin Urine Urobilinogen Ur Leukocyte Esterase Urine RBC Urine WBC Ur Squamous Epith Cells Urine Bacteria Ur Culture Indicated? Nasal Screen MRSA (PCR) Not detected Chlamy pneumoniae PCR Adenovirus (PCR) B. pertussis DNA (PCR) B.parapertussis DNA PCR Coronavirus OC43 (PCR) Coronavirus HKU1 (PCR) Coronavirus 229E (PCR) SARS-CoV-2 (PCR) Coronavirus NL63 (PCR) Human Metapneumovir PCR Influenza Type A (PCR) Influenza Type B (PCR) M. pneumoniae (PCR) Parainfluenza 1 (PCR) Parainfluenza 2 (PCR) Parainfluenza 3 (PCR) Parainfluenza 4 (PCR) RSV (PCR) Entero/Rhino (PCR)
[2022-11-28 20:20] LABS: PCO2 ABG 28.7 mmHg (35-45); PO2 ABG 46 mmHg (80-100); pH ABG 7.38 (7.35-7.45)
[2022-11-28 20:21] LABS: HCO3 ABG 17 mmol/L (23-27); TCO2 ABG 18 mmol/L (23-27)
[2022-11-28 20:22] LABS: Oxygen Saturation ABG 82 % (95-100)
[2022-11-28 20:24] LABS: Fractionated Inspired Oxygen 28
[2022-11-28] MEDS: cefTRIAXone 2,000 MG in SODIUM CHLORIDE 0.9% 100 ML 200 MG IV (21:18)
[2022-11-28] MEDS: HEPARIN 5,000 UNIT/ML VIAL 5000 UNIT SUBCUT (21:19)
[2022-11-28] MEDS: AZITHROMYCIN 500 MG in DEXTROSE 5% IN WATER 250 ML 250 MG IV (21:56)
[2022-11-28] MEDS: ALBUTEROL 2.5 MG/3 ML NEB (ADULT) INH (22:52)
[2022-11-29] VITALS (109 sets, daily range): BP systolic 120–154; BP diastolic 60–96; PULSE 61–99; RESP 13–47; TEMP 31–36.8; O2SAT 89–98
[2022-11-29 05:48] LABS: Add Manual Diff / Slide Review NO; Basophils Absolute Auto 0 /uL (0-100); Basophils Percent Auto 0.1 % (0-2); Eosinophils Absolute Auto 0 /uL (0-450); Hematocrit 38.4 % (41-53); Hemoglobin 12.9 g/dL (13.5-17.5); Lymphocytes Absolute Auto 1300 /uL (1100-4500); Lymphocytes Percent Auto 6.8 % (25-40); Mean Corpuscular HGB Conc 33.6 % (30-36); Mean Corpuscular Hemoglobin 28.7 PG (26-34); Mean Corpuscular Volume 85.3 fL (80-100); Monocytes Absolute Auto 1300 /uL (0-900); Monocytes Percent Auto 6.9 % (3-14); Neutrophils Absolute Auto 15800 /uL (1500-7000); Neutrophils Percent Auto 86.2 % (50-75); Platelet Count 364 X10^3/uL (150-400); Red Blood Cell Count 4.51 X10^6/uL (4.5-5.9); Red Cell Distribution Width 13.8 % (11.6-14.8); White Blood Cell Count 18.4 X10^3/uL (4.5-11.0)
[2022-11-29 05:51] LABS: BUN Creatinine Ratio 18.8 (6-22); Blood Urea Nitrogen 12 mg/dL (9-20); Calcium 9.2 mg/dL (8.4-10.2); Carbon Dioxide 22 mmol/L (22-32); Chloride 104 mmol/L (98-107); Estimated Glomerular Filt Rate > 60 mL/min (>60); Glucose 132 mg/dL (70-100); HEMOLYSIS < 15 (0-50); Potassium 4.1 mmol/L (3.4-5.1); Sodium 137 mmol/L (137-145)
[2022-11-29] MEDS: ALBUTEROL 2.5 MG/3 ML NEB (ADULT) INH (07:10)
[2022-11-29] MEDS: HEPARIN 5,000 UNIT/ML VIAL 5000 UNIT SUBCUT ×2 (08:25→20:52)
[2022-11-29] MEDS: predniSONE 20 MG TABLET 60 MG PO (08:25)
[2022-11-29] MEDS: ALBUTEROL/IPRATROPIUM 3 ML AMPUL INH (09:12)
--- NOTE | 2022-11-29 09:39 | P.TELICUPN_ITS ---
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 Henriquez is a 32 yr old male with PMH of asthma & morbid obesity, have not seen a doctor for many years he presented with cough for couple of days with clear sputum, fevers, ?chills & shortness of breath that started today, ?work up positive for rhino virus infection, CXR showed bilateral interstitial infiltrates, he was placed on BIPAP for increased work of breathing Overnight CTA chest showed BL infiltarte / PNA Assessment: Acute hypoxic resp failure Viral PNA / Rhino Asthma exacerbation Morbid obesity Rec: Currently no acute distress, off BiPAP for 1 hr, low threshould to resume BiPAP even with minimal feeling of SOB or work of breathing, on RA & sat > 92, Agree with steroid and broad spectrum antibiotics, f/u atypical serology, ?resp and blood Cx GI & chemical DVT ppx Discussed with the staff CCT 30 min Current Medications Current Medications Medications: Home Medications No Known Home Medications 11/28/22 [History Confirmed 11/28/22] Visit Medications (administered) Generic Name Dose Route Start Last Admin Trade Name Freq PRN Reason Stop Dose Admin Albuterol 2.5 mg 11/28/22 19:00 11/29/22 07:10 Albuterol 2.5 Mg/3 Ml Neb (Adult) INH 2.5 mg [id number] GABINO Administration Albuterol/Ipratropium 3 ml 11/28/22 11:24 11/29/22 09:12 Albuterol/Ipratropium 3 Ml Ampul INH 3 ml Q1H PRN Administration Shortness Of Breath Heparin Sodium (Porcine) 5,000 unit 11/28/22 21:00 11/29/22 08:25 Heparin 5,000 Unit/Ml Vial SUBCUT 5,000 unit BID GABINO Administration Ceftriaxone Sodium 2,000 mg/ 100 mls @ 200 mls/hr 11/28/22 19:45 11/28/22 23:02 Sodium Chloride IV Infused Q24H GABINO Infusion Azithromycin 500 mg/ Dextrose 250 mls @ 250 mls/hr 11/28/22 19:45 11/28/22 23:02 IV Infused Q24H GABINO Infusion Prednisone 60 mg 11/29/22 09:00 11/29/22 08:25 Prednisone 20 Mg Tablet PO 60 mg DAILY GABINO Administration Objective Labs 11/29/22 04:15 11/29/22 04:15 Labs: Laboratory Results - last 24 hr 11/28/22 11/28/22 11/28/22 11:20 11:20 11:31 WBC 17.6 H RBC 4.95 Hgb 14.2 Hct 42.2 MCV 85.2 MCH 28.7 MCHC 33.7 RDW 13.2 Plt Count 324 Neut % (Auto) 77.1 H Lymph % (Auto) 11.6 L [place] % (Auto) 7.3 Eos % (Auto) 3.0 Baso % (Auto) 1.0 Neut # (Auto) 99814 H Lymph # (Auto) 2000 [place] # (Auto) 1300 H Eos # (Auto) 500 H Baso # (Auto) 200 H RBC Morphology Normal morphology PT INR APTT ABG pH ABG pCO2 ABG pO2 ABG HCO3 ABG Total CO2 ABG O2 Saturation ABG Base Excess FiO2 Sodium Potassium Chloride Carbon Dioxide BUN Creatinine Estimated GFR BUN/Creatinine Ratio Glucose Lactate Calcium Magnesium Total Bilirubin AST ALT Alkaline Phosphatase Troponin I NT-Pro-B Natriuret Pep Total Protein Albumin Globulin Albumin/Globulin Ratio Lipase Procalcitonin Urine Color Urine Appearance Urine pH Ur Specific [place] Urine Protein Urine Glucose (UA) Urine Ketones Urine Occult Blood Urine Nitrate Urine Bilirubin Urine Urobilinogen Ur Leukocyte Esterase Urine RBC Urine WBC Ur Squamous Epith Cells Urine Bacteria Ur Culture Indicated? Nasal Screen MRSA (PCR) Chlamy pneumoniae PCR Not detected Adenovirus (PCR) Not detected B. pertussis DNA (PCR) Not detected B.parapertussis DNA PCR Not detected Coronavirus OC43 (PCR) Not detected Coronavirus HKU1 (PCR) Not detected Coronavirus 229E (PCR) Not detected SARS-CoV-2 (PCR) Cancelled Not detected Coronavirus NL63 (PCR) Not detected Human Metapneumovir PCR Not detected Influenza Type A (PCR) Not detected Influenza Type B (PCR) Not detected M. pneumoniae (PCR) Not detected Parainfluenza 1 (PCR) Not detected Parainfluenza 2 (PCR) Not detected Parainfluenza 3 (PCR) Not detected Parainfluenza 4 (PCR) Not detected RSV (PCR) Not detected Entero/Rhino (PCR) Detected H 11/28/22 11/28/22 11/28/22 11:31 11:31 11:31 WBC RBC Hgb Hct MCV MCH MCHC RDW Plt Count Neut % (Auto) Lymph % (Auto) [place] % (Auto) Eos % (Auto) Baso % (Auto) Neut # (Auto) Lymph # (Auto) [place] # (Auto) Eos # (Auto) Baso # (Auto) RBC Morphology PT 12.2 INR 1.1 APTT 22 L ABG pH ABG pCO2 ABG pO2 ABG HCO3 ABG Total CO2 ABG O2 Saturation ABG Base Excess FiO2 Sodium 137 Potassium 4.2 Chloride 100 Carbon Dioxide 27 BUN 9 Creatinine 0.76 Estimated GFR > 60 BUN/Creatinine Ratio 11.8 Glucose 107 H Lactate 2.0 Calcium 8.9 Magnesium Total Bilirubin 0.7 AST 45 ALT 40 Alkaline Phosphatase 106 Troponin I NT-Pro-B Natriuret Pep Total Protein 8.4 H Albumin 4.3 Globulin 4.1 Albumin/Globulin Ratio 1.0 Lipase 118 Procalcitonin 0.07 Urine Color Urine Appearance Urine pH Ur Specific [place] Urine Protein Urine Glucose (UA) Urine Ketones Urine Occult Blood Urine Nitrate Urine Bilirubin Urine Urobilinogen Ur Leukocyte Esterase Urine RBC Urine WBC Ur Squamous Epith Cells Urine Bacteria Ur Culture Indicated? Nasal Screen MRSA (PCR) Chlamy pneumoniae PCR Adenovirus (PCR) B. pertussis DNA (PCR) B.parapertussis DNA PCR Coronavirus OC43 (PCR) Coronavirus HKU1 (PCR) Coronavirus 229E (PCR) SARS-CoV-2 (PCR) Coronavirus NL63 (PCR) Human Metapneumovir PCR Influenza Type A (PCR) Influenza Type B (PCR) M. pneumoniae (PCR) Parainfluenza 1 (PCR) Parainfluenza 2 (PCR) Parainfluenza 3 (PCR) Parainfluenza 4 (PCR) RSV (PCR) Entero/Rhino (PCR) 11/28/22 11/28/22 11/28/22 11:31 11:31 12:55 WBC RBC Hgb Hct MCV MCH MCHC RDW Plt Count Neut % (Auto) Lymph % (Auto) [place] % (Auto) Eos % (Auto) Baso % (Auto) Neut # (Auto) Lymph # (Auto) [place] # (Auto) Eos # (Auto) Baso # (Auto) RBC Morphology PT INR APTT ABG pH ABG pCO2 ABG pO2 ABG HCO3 ABG Total CO2 ABG O2 Saturation ABG Base Excess FiO2 Sodium Potassium Chloride Carbon Dioxide BUN Creatinine Estimated GFR BUN/Creatinine Ratio Glucose Lactate Calcium Magnesium 1.9 Total Bilirubin AST ALT Alkaline Phosphatase Troponin I < 0.012 NT-Pro-B Natriuret Pep 37 Total Protein Albumin Globulin Albumin/Globulin Ratio Lipase Procalcitonin Urine Color Yellow Urine Appearance Clear Urine pH 7.0 Ur Specific [place] 1.010 Urine Protein Negative Urine Glucose (UA) Negative Urine Ketones Negative Urine Occult Blood Trace-intact Urine Nitrate Negative Urine Bilirubin Negative Urine Urobilinogen 0.2 Ur Leukocyte Esterase Trace H Urine RBC 0-1/hpf Urine WBC 1-5/hpf Ur Squamous Epith Cells 0-1 /hpf Urine Bacteria Occasional (0-1) Ur Culture Indicated? Specimen cultured Nasal Screen MRSA (PCR) Chlamy pneumoniae PCR Adenovirus (PCR) B. pertussis DNA (PCR) B.parapertussis DNA PCR Coronavirus OC43 (PCR) Coronavirus HKU1 (PCR) Coronavirus 229E (PCR) SARS-CoV-2 (PCR) Coronavirus NL63 (PCR) Human Metapneumovir PCR Influenza Type A (PCR) Influenza Type B (PCR) M. pneumoniae (PCR) Parainfluenza 1 (PCR) Parainfluenza 2 (PCR) Parainfluenza 3 (PCR) Parainfluenza 4 (PCR) RSV (PCR) Entero/Rhino (PCR) 11/28/22 11/28/22 11/28/22 14:05 16:59 19:23 WBC RBC Hgb Hct MCV MCH MCHC RDW Plt Count Neut % (Auto) Lymph % (Auto) [place] % (Auto) Eos % (Auto) Baso % (Auto) Neut # (Auto) Lymph # (Auto) [place] # (Auto) Eos # (Auto) Baso # (Auto) RBC Morphology PT INR APTT ABG pH 7.44 7.38 ABG pCO2 32.4 L 28.7 L ABG pO2 50 L 46 L* ABG HCO3 22 L 17 L ABG Total CO2 23 18 L ABG O2 Saturation 87 L 82 L* ABG Base Excess -2.0 -8.0 L FiO2 21 28 Sodium Potassium Chloride Carbon Dioxide BUN Creatinine Estimated GFR BUN/Creatinine Ratio Glucose Lactate Calcium Magnesium Total Bilirubin AST ALT Alkaline Phosphatase Troponin I NT-Pro-B Natriuret Pep Total Protein Albumin Globulin Albumin/Globulin Ratio Lipase Procalcitonin Urine Color Urine Appearance Urine pH Ur Specific [place] Urine Protein Urine Glucose (UA) Urine Ketones Urine Occult Blood Urine Nitrate Urine Bilirubin Urine Urobilinogen Ur Leukocyte Esterase Urine RBC Urine WBC Ur Squamous Epith Cells Urine Bacteria Ur Culture Indicated? Nasal Screen MRSA (PCR) Not detected Chlamy pneumoniae PCR Adenovirus (PCR) B. pertussis DNA (PCR) B.parapertussis DNA PCR Coronavirus OC43 (PCR) Coronavirus HKU1 (PCR) Coronavirus 229E (PCR) SARS-CoV-2 (PCR) Coronavirus NL63 (PCR) Human Metapneumovir PCR Influenza Type A (PCR) Influenza Type B (PCR) M. pneumoniae (PCR) Parainfluenza 1 (PCR) Parainfluenza 2 (PCR) Parainfluenza 3 (PCR) Parainfluenza 4 (PCR) RSV (PCR) Entero/Rhino (PCR) 11/29/22 11/29/22 04:15 04:15 WBC 18.4 H RBC 4.51 Hgb 12.9 L Hct 38.4 L MCV 85.3 MCH 28.7 MCHC 33.6 RDW 13.8 Plt Count 364 Neut % (Auto) 86.2 H Lymph % (Auto) 6.8 L [place] % (Auto) 6.9 Eos % (Auto) 0.0 L Baso % (Auto) 0.1 Neut # (Auto) 75392 H Lymph # (Auto) 1300 [place] # (Auto) 1300 H Eos # (Auto) 0 Baso # (Auto) 0 RBC Morphology PT INR APTT ABG pH ABG pCO2 ABG pO2 ABG HCO3 ABG Total CO2 ABG O2 Saturation ABG Base Excess FiO2 Sodium 137 Potassium 4.1 Chloride 104 Carbon Dioxide 22 BUN 12 Creatinine 0.64 L Estimated GFR > 60 BUN/Creatinine Ratio 18.8 Glucose 132 H Lactate Calcium 9.2 Magnesium Total Bilirubin AST ALT Alkaline Phosphatase Troponin I NT-Pro-B Natriuret Pep Total Protein Albumin Globulin Albumin/Globulin Ratio Lipase Procalcitonin Urine Color Urine Appearance Urine pH Ur Specific [place] Urine Protein Urine Glucose (UA) Urine Ketones Urine Occult Blood Urine Nitrate Urine Bilirubin Urine Urobilinogen Ur Leukocyte Esterase Urine RBC Urine WBC Ur Squamous Epith Cells Urine Bacteria Ur Culture Indicated? Nasal Screen MRSA (PCR) Chlamy pneumoniae PCR Adenovirus (PCR) B. pertussis DNA (PCR) B.parapertussis DNA PCR Coronavirus OC43 (PCR) Coronavirus HKU1 (PCR) Coronavirus 229E (PCR) SARS-CoV-2 (PCR) Coronavirus NL63 (PCR) Human Metapneumovir PCR Influenza Type A (PCR) Influenza Type B (PCR) M. pneumoniae (PCR) Parainfluenza 1 (PCR) Parainfluenza 2 (PCR) Parainfluenza 3 (PCR) Parainfluenza 4 (PCR) RSV (PCR) Entero/Rhino (PCR) Exam Vital Signs (past 8 hours): - 11/29/22 01:45 11/29/22 02:00 11/29/22 02:00 Temperature Pulse Rate 76 80 Respiratory Rate 22 23 Blood Pressure 147/60 H Pulse Oximetry 92 91 Oxygen Delivery Method Fraction of Inspired Oxygen 11/29/22 02:15 11/29/22 02:30 11/29/22 02:45 Temperature Pulse Rate 73 75 75 Respiratory Rate 23 22 21 Blood Pressure Pulse Oximetry 90 L 91 92 Oxygen Delivery Method Fraction of Inspired Oxygen 11/29/22 03:00 11/29/22 03:00 11/29/22 03:15 Temperature Pulse Rate 72 70 Respiratory Rate 22 22 Blood Pressure 129/70 Pulse Oximetry 92 92 Oxygen Delivery Method Fraction of Inspired Oxygen 11/29/22 04:00 11/29/22 03:30 11/29/22 03:45 Temperature 96.6 F L Pulse Rate 70 71 Respiratory Rate 22 24 Blood Pressure Pulse Oximetry 92 92 Oxygen Delivery Method Fraction of Inspired Oxygen 11/29/22 04:00 11/29/22 04:00 11/29/22 04:15 Temperature Pulse Rate 68 72 Respiratory Rate 23 19 Blood Pressure 127/73 Pulse Oximetry 93 Oxygen Delivery Method Fraction of Inspired Oxygen 11/29/22 04:30 11/29/22 04:45 11/29/22 05:00 Temperature Pulse Rate 65 68 Respiratory Rate 19 21 Blood Pressure 120/76 Pulse Oximetry 94 92 Oxygen Delivery Method Fraction of Inspired Oxygen 11/29/22 05:00 11/29/22 05:15 11/29/22 05:30 Temperature Pulse Rate 66 70 70 Respiratory Rate 19 28 H 27 H Blood Pressure Pulse Oximetry 94 92 91 Oxygen Delivery Method Fraction of Inspired Oxygen 11/29/22 05:45 11/29/22 06:00 11/29/22 06:00 Temperature Pulse Rate 72 61 Respiratory Rate 29 H 22 Blood Pressure 124/80 Pulse Oximetry 92 93 Oxygen Delivery Method Fraction of Inspired Oxygen 11/29/22 05:11 11/29/22 07:20 11/29/22 07:23 Temperature Pulse Rate 65 Respiratory Rate 21 Blood Pressure 139/69 Pulse Oximetry 94 Oxygen Delivery Method BiPAP Fraction of Inspired Oxygen 28 28 11/29/22 07:00 11/29/22 06:15 11/29/22 06:30 Temperature Pulse Rate 63 63 Respiratory Rate 21 21 Blood Pressure Pulse Oximetry 93 94 Oxygen Delivery Method Room Air Fraction of Inspired Oxygen 11/29/22 06:45 11/29/22 07:00 11/29/22 07:00 Temperature Pulse Rate 64 64 Respiratory Rate 22 20 Blood Pressure 139/69 Pulse Oximetry 94 94 Oxygen Delivery Method Fraction of Inspired Oxygen 11/29/22 07:15 11/29/22 07:30 11/29/22 07:45 Temperature Pulse Rate 62 62 65 Respiratory Rate 20 20 21 Blood Pressure Pulse Oximetry 93 94 93 Oxygen Delivery Method Fraction of Inspired Oxygen 11/29/22 07:56 11/29/22 07:56 11/29/22 08:00 Temperature Pulse Rate 64 Respiratory Rate 20 Blood Pressure 133/75 137/70 Pulse Oximetry 93 Oxygen Delivery Method Fraction of Inspired Oxygen 11/29/22 08:00 11/29/22 08:15 11/29/22 08:30 Temperature Pulse Rate 65 67 72 Respiratory Rate 21 21 26 H Blood Pressure Pulse Oximetry 93 93 96 Oxygen Delivery Method Fraction of Inspired Oxygen 11/29/22 09:15 Temperature Pulse Rate Respiratory Rate Blood Pressure Pulse Oximetry 92 Oxygen Delivery Method Room Air Fraction of Inspired Oxygen Fraction of Inspired Oxygen 28 Oxygen Delivery Method Room Air Oxygen Flow Rate 2 Quality TeleICU VTE Deep Vein Thrombosis/Pulmonary Embolism Present on Admission: No
[2022-11-29] MEDS: ALBUTEROL 2.5 MG/3 ML NEB (ADULT) 5 MG INH ×4 (11:05→23:19)
--- NOTE | 2022-11-29 12:28 | PM.PN.1 ---
Subjective Subjective Date Patient Seen: 11/29/22 Time Patient Seen: 08:00 Interval history: He was on BIPAP overnight and did well. His shortness of breath is improved. He is still coughing. He has difficulty with deep breaths. He remains on BIPAP Exam Vital Signs (past 8 hours): - 11/29/22 04:30 11/29/22 04:45 11/29/22 05:00 Pulse Rate 65 68 Respiratory Rate 19 21 Blood Pressure 120/76 Pulse Oximetry 94 92 Oxygen Delivery Method Fraction of Inspired Oxygen 11/29/22 05:00 11/29/22 05:15 11/29/22 05:30 Pulse Rate 66 70 70 Respiratory Rate 19 28 H 27 H Blood Pressure Pulse Oximetry 94 92 91 Oxygen Delivery Method Fraction of Inspired Oxygen 11/29/22 05:45 11/29/22 06:00 11/29/22 06:00 Pulse Rate 72 61 Respiratory Rate 29 H 22 Blood Pressure 124/80 Pulse Oximetry 92 93 Oxygen Delivery Method Fraction of Inspired Oxygen 11/29/22 05:11 11/29/22 07:20 11/29/22 07:23 Pulse Rate 65 Respiratory Rate 21 Blood Pressure 139/69 Pulse Oximetry 94 Oxygen Delivery Method BiPAP Fraction of Inspired Oxygen 28 28 11/29/22 07:00 11/29/22 06:15 11/29/22 06:30 Pulse Rate 63 63 Respiratory Rate 21 21 Blood Pressure Pulse Oximetry 93 94 Oxygen Delivery Method Room Air Fraction of Inspired Oxygen 11/29/22 06:45 11/29/22 07:00 11/29/22 07:00 Pulse Rate 64 64 Respiratory Rate 22 20 Blood Pressure 139/69 Pulse Oximetry 94 94 Oxygen Delivery Method Fraction of Inspired Oxygen 11/29/22 07:15 11/29/22 07:30 11/29/22 07:45 Pulse Rate 62 62 65 Respiratory Rate 20 20 21 Blood Pressure Pulse Oximetry 93 94 93 Oxygen Delivery Method Fraction of Inspired Oxygen 11/29/22 07:56 11/29/22 07:56 11/29/22 08:00 Pulse Rate 64 Respiratory Rate 20 Blood Pressure 133/75 137/70 Pulse Oximetry 93 Oxygen Delivery Method Fraction of Inspired Oxygen 11/29/22 08:00 11/29/22 08:15 11/29/22 08:30 Pulse Rate 65 67 72 Respiratory Rate 21 21 26 H Blood Pressure Pulse Oximetry 93 93 96 Oxygen Delivery Method Fraction of Inspired Oxygen 11/29/22 09:15 11/29/22 11:11 11/29/22 08:45 Pulse Rate 73 72 Respiratory Rate 20 25 H Blood Pressure Pulse Oximetry 92 93 91 Oxygen Delivery Method Room Air Room Air Fraction of Inspired Oxygen 11/29/22 09:07 11/29/22 09:15 11/29/22 09:30 Pulse Rate 89 76 87 Respiratory Rate 14 13 31 H Blood Pressure Pulse Oximetry 93 94 91 Oxygen Delivery Method Fraction of Inspired Oxygen 11/29/22 09:45 11/29/22 10:00 11/29/22 10:15 Pulse Rate 78 87 84 Respiratory Rate 35 H 34 H 31 H Blood Pressure Pulse Oximetry 92 94 91 Oxygen Delivery Method Fraction of Inspired Oxygen 11/29/22 10:30 11/29/22 10:45 11/29/22 11:00 Pulse Rate 75 78 79 Respiratory Rate 38 H 37 H 37 H Blood Pressure Pulse Oximetry 91 91 90 L Oxygen Delivery Method Fraction of Inspired Oxygen 11/29/22 11:06 11/29/22 11:06 11/29/22 11:15 Pulse Rate 77 79 Respiratory Rate 31 H 26 H Blood Pressure 135/63 Pulse Oximetry 91 91 Oxygen Delivery Method Fraction of Inspired Oxygen 11/29/22 11:30 11/29/22 11:45 11/29/22 12:00 Pulse Rate 88 85 Respiratory Rate 31 H 33 H Blood Pressure 138/64 Pulse Oximetry 92 89 L Oxygen Delivery Method Fraction of Inspired Oxygen 11/29/22 12:00 Pulse Rate 90 Respiratory Rate 23 Blood Pressure Pulse Oximetry 91 Oxygen Delivery Method Fraction of Inspired Oxygen Fraction of Inspired Oxygen 28 Oxygen Delivery Method Room Air Oxygen Flow Rate 2 Narrative Exam Narrative: GEN: in respiratory distress HEENT: moist mucous membranes PULM: wheezes, bilaterally CV: regular rate and rhythm, no murmurs ABD: soft, nontender, nondistended, no organomegaly EXT: warm and well perfused, no edema Objective Labs 11/29/22 04:15 11/29/22 04:15 Labs: Laboratory Results - last 24 hr 11/28/22 11/28/22 11/28/22 11:20 11:31 11:31 WBC RBC Hgb Hct MCV MCH MCHC RDW Plt Count 324 Neut % (Auto) Lymph % (Auto) [place] % (Auto) Eos % (Auto) Baso % (Auto) Neut # (Auto) Lymph # (Auto) [place] # (Auto) Eos # (Auto) Baso # (Auto) RBC Morphology Normal morphology ABG pH ABG pCO2 ABG pO2 ABG HCO3 ABG Total CO2 ABG O2 Saturation ABG Base Excess FiO2 Sodium Potassium Chloride Carbon Dioxide BUN Creatinine Estimated GFR BUN/Creatinine Ratio Glucose Calcium Magnesium Troponin I < 0.012 NT-Pro-B Natriuret Pep 37 Urine Color Urine Appearance Urine pH Ur Specific [place] Urine Protein Urine Glucose (UA) Urine Ketones Urine Occult Blood Urine Nitrate Urine Bilirubin Urine Urobilinogen Ur Leukocyte Esterase Urine RBC Urine WBC Ur Squamous Epith Cells Urine Bacteria Ur Culture Indicated? Nasal Screen MRSA (PCR) Chlamy pneumoniae PCR Not detected Adenovirus (PCR) Not detected B. pertussis DNA (PCR) Not detected B.parapertussis DNA PCR Not detected Coronavirus OC43 (PCR) Not detected Coronavirus HKU1 (PCR) Not detected Coronavirus 229E (PCR) Not detected SARS-CoV-2 (PCR) Not detected Coronavirus NL63 (PCR) Not detected Human Metapneumovir PCR Not detected Influenza Type A (PCR) Not detected Influenza Type B (PCR) Not detected M. pneumoniae (PCR) Not detected Parainfluenza 1 (PCR) Not detected Parainfluenza 2 (PCR) Not detected Parainfluenza 3 (PCR) Not detected Parainfluenza 4 (PCR) Not detected RSV (PCR) Not detected Entero/Rhino (PCR) Detected H 11/28/22 11/28/22 11/28/22 11:31 12:55 14:05 WBC RBC Hgb Hct MCV MCH MCHC RDW Plt Count Neut % (Auto) Lymph % (Auto) [place] % (Auto) Eos % (Auto) Baso % (Auto) Neut # (Auto) Lymph # (Auto) [place] # (Auto) Eos # (Auto) Baso # (Auto) RBC Morphology ABG pH 7.44 ABG pCO2 32.4 L ABG pO2 50 L ABG HCO3 22 L ABG Total CO2 23 ABG O2 Saturation 87 L ABG Base Excess -2.0 FiO2 21 Sodium Potassium Chloride Carbon Dioxide BUN Creatinine Estimated GFR BUN/Creatinine Ratio Glucose Calcium Magnesium 1.9 Troponin I NT-Pro-B Natriuret Pep Urine Color Yellow Urine Appearance Clear Urine pH 7.0 Ur Specific [place] 1.010 Urine Protein Negative Urine Glucose (UA) Negative Urine Ketones Negative Urine Occult Blood Trace-intact Urine Nitrate Negative Urine Bilirubin Negative Urine Urobilinogen 0.2 Ur Leukocyte Esterase Trace H Urine RBC 0-1/hpf Urine WBC 1-5/hpf Ur Squamous Epith Cells 0-1 /hpf Urine Bacteria Occasional (0-1) Ur Culture Indicated? Specimen cultured Nasal Screen MRSA (PCR) Chlamy pneumoniae PCR Adenovirus (PCR) B. pertussis DNA (PCR) B.parapertussis DNA PCR Coronavirus OC43 (PCR) Coronavirus HKU1 (PCR) Coronavirus 229E (PCR) SARS-CoV-2 (PCR) Coronavirus NL63 (PCR) Human Metapneumovir PCR Influenza Type A (PCR) Influenza Type B (PCR) M. pneumoniae (PCR) Parainfluenza 1 (PCR) Parainfluenza 2 (PCR) Parainfluenza 3 (PCR) Parainfluenza 4 (PCR) RSV (PCR) Entero/Rhino (PCR) 11/28/22 11/28/22 11/29/22 16:59 19:23 04:15 WBC 18.4 H RBC 4.51 Hgb 12.9 L Hct 38.4 L MCV 85.3 MCH 28.7 MCHC 33.6 RDW 13.8 Plt Count 364 Neut % (Auto) 86.2 H Lymph % (Auto) 6.8 L [place] % (Auto) 6.9 Eos % (Auto) 0.0 L Baso % (Auto) 0.1 Neut # (Auto) 22265 H Lymph # (Auto) 1300 [place] # (Auto) 1300 H Eos # (Auto) 0 Baso # (Auto) 0 RBC Morphology ABG pH 7.38 ABG pCO2 28.7 L ABG pO2 46 L* ABG HCO3 17 L ABG Total CO2 18 L ABG O2 Saturation 82 L* ABG Base Excess -8.0 L FiO2 28 Sodium Potassium Chloride Carbon Dioxide BUN Creatinine Estimated GFR BUN/Creatinine Ratio Glucose Calcium Magnesium Troponin I NT-Pro-B Natriuret Pep Urine Color Urine Appearance Urine pH Ur Specific [place] Urine Protein Urine Glucose (UA) Urine Ketones Urine Occult Blood Urine Nitrate Urine Bilirubin Urine Urobilinogen Ur Leukocyte Esterase Urine RBC Urine WBC Ur Squamous Epith Cells Urine Bacteria Ur Culture Indicated? Nasal Screen MRSA (PCR) Not detected Chlamy pneumoniae PCR Adenovirus (PCR) B. pertussis DNA (PCR) B.parapertussis DNA PCR Coronavirus OC43 (PCR) Coronavirus HKU1 (PCR) Coronavirus 229E (PCR) SARS-CoV-2 (PCR) Coronavirus NL63 (PCR) Human Metapneumovir PCR Influenza Type A (PCR) Influenza Type B (PCR) M. pneumoniae (PCR) Parainfluenza 1 (PCR) Parainfluenza 2 (PCR) Parainfluenza 3 (PCR) Parainfluenza 4 (PCR) RSV (PCR) Entero/Rhino (PCR) 11/29/22 04:15 WBC RBC Hgb Hct MCV MCH MCHC RDW Plt Count Neut % (Auto) Lymph % (Auto) [place] % (Auto) Eos % (Auto) Baso % (Auto) Neut # (Auto) Lymph # (Auto) [place] # (Auto) Eos # (Auto) Baso # (Auto) RBC Morphology ABG pH ABG pCO2 ABG pO2 ABG HCO3 ABG Total CO2 ABG O2 Saturation ABG Base Excess FiO2 Sodium 137 Potassium 4.1 Chloride 104 Carbon Dioxide 22 BUN 12 Creatinine 0.64 L Estimated GFR > 60 BUN/Creatinine Ratio 18.8 Glucose 132 H Calcium 9.2 Magnesium Troponin I NT-Pro-B Natriuret Pep Urine Color Urine Appearance Urine pH Ur Specific [place] Urine Protein Urine Glucose (UA) Urine Ketones Urine Occult Blood Urine Nitrate Urine Bilirubin Urine Urobilinogen Ur Leukocyte Esterase Urine RBC Urine WBC Ur Squamous Epith Cells Urine Bacteria Ur Culture Indicated? Nasal Screen MRSA (PCR) Chlamy pneumoniae PCR Adenovirus (PCR) B. pertussis DNA (PCR) B.parapertussis DNA PCR Coronavirus OC43 (PCR) Coronavirus HKU1 (PCR) Coronavirus 229E (PCR) SARS-CoV-2 (PCR) Coronavirus NL63 (PCR) Human Metapneumovir PCR Influenza Type A (PCR) Influenza Type B (PCR) M. pneumoniae (PCR) Parainfluenza 1 (PCR) Parainfluenza 2 (PCR) Parainfluenza 3 (PCR) Parainfluenza 4 (PCR) RSV (PCR) Entero/Rhino (PCR) [facility] Medical History Acquired urinary meatal stenosis BXO (balanitis xerotica obliterans) History of high blood pressure Urethral injury Family History Father Cancer Hypertension Social History marital status: number of children: 4 household members: spouse Smoking Status: Former smoker Tobacco: How many years used: 3 alcohol intake: former caffeine: Yes Type(s) of exercise: none Assessment & Plan Assessment & Plan narrative: 1. Acute hypoxemic respiratory failure secondary to acute asthma exacerbation secondary to viral pneumonia -presented with hypoxemia as documented with pao2 in 50s, with increased work of breathing required bipap -respiratory pcr panel positive for enterovirus -initial peak flow severely low at 280 -symptomatically improved with nebulizers and steroids -continue oxygen as needed -monitor in ICU due to low peak flow -continue steroids and nebulizers -ordered for ceftriaxone and azithromycin to cover for bacternial pneumonia -CTA negative for PE -will likely need pulmonology referral or sleep study once discharged I have discussed plan and obtained history with patient and family at bedside. I have discussed plan of care with ED physician, RT, and bedside nurse. I have reviewed labs, imaging. CODE: Full Proxy: Kristina Florence, spouse Quality VTE Deep Vein Thrombosis/Pulmonary Embolism Present on Admission: No
[2022-11-29] MEDS: CODEINE/ACETAMINOPHEN 30/300 TABLET 1 TAB PO (13:27)
--- NOTE | 2022-11-29 14:54 | CM.DANOTE ---
DCP Assessment Note: Patient is a 32yo male here following shortness of breath/pneumonia PCP: None. OPERATING ROOM SURGICAL TECHNOLOGIST provided patient a list of PCPs in area accepting new patients. Payer: [employer] preferred and self pay Per provider in rounds, patient is not ready to d/c today. OPERATING ROOM SURGICAL TECHNOLOGIST reviewed EMR. OPERATING ROOM SURGICAL TECHNOLOGIST entered room and introduced self and role. Patient was sitting up and appeared A/Ox4. Patient has been up and moving like normal, active/independent at baseline. [place] with Kristina [phone] and 4 kids (8, 6, 3yo and 9mo old). Patient reports and mom are supports that could help him on d/c. Patient likely to transport with one of them. Plan: patient likely to d/c home with spouse when medically stable. No additional needs identified at this time. CM team will continue to follow as needed. ZACHERY Mcbride Discharge Planning/Care Management CM Discharge Assessment Start: 11/29/22 14:52 Freq: Status: Active Protocol: Document 11/29/22 14:52 (Rec: 11/29/22 14:54 [id number]) Discharge Planning Assessment Assigned Spanish Lecturer ZACHERY Mcclendon DPOA/Assigned Designee Name Kristina Henriquez (spouse) Contact Information [phone] Advance Directives? No History Provided By Patient,Medical Record Prior Living Arrangements House Household Members spouse,children Comment 8, 6, 3 yr and 9 mo old children Type of transporation used prior to Drives own vehicle admit Independent with ADL's Yes Is patient alert and oriented? Yes Discharge Plan Home Transportation Arrangement family in POV Whiteboard Updated in Patient Room with Yes name and ext. # of Spanish Lecturer Review Status In Process Next Review Type Continued Stay Review
[2022-11-29] MEDS: cefTRIAXone 2,000 MG in SODIUM CHLORIDE 0.9% 100 ML 200 MG IV (19:50)
--- NOTE | 2022-11-29 20:15 | P.ICUMDRN_ITS ---
- Date Patient Seen: 11/29/22 :: This patient was seen via real time interactive two-way audiovisual telecommunic ation. Note: No acute issues during the day. Plan switch BiPAP to CPAP 10 cmH20 nightly. D/w bedside RN.
[2022-11-29] MEDS: AZITHROMYCIN 500 MG in DEXTROSE 5% IN WATER 250 ML 250 MG IV (20:52)
[2022-11-30] VITALS (49 sets, daily range): BP systolic 123–168; BP diastolic 71–77; PULSE 56–101; RESP 9–39; TEMP 31–36.5; O2SAT 89–98
[2022-11-30 05:00] LABS: Hematocrit 38.8 % (41-53); Hemoglobin 13.1 g/dL (13.5-17.5); Mean Corpuscular HGB Conc 33.6 % (30-36); Mean Corpuscular Hemoglobin 28.7 PG (26-34); Mean Corpuscular Volume 85.3 fL (80-100); Platelet Count 327 X10^3/uL (150-400); Red Blood Cell Count 4.55 X10^6/uL (4.5-5.9); Red Cell Distribution Width 13.7 % (11.6-14.8); White Blood Cell Count 17.2 X10^3/uL (4.5-11.0)
[2022-11-30 05:13] LABS: BUN Creatinine Ratio 20.3 (6-22); Blood Urea Nitrogen 15 mg/dL (9-20); Calcium 8.6 mg/dL (8.4-10.2); Carbon Dioxide 24 mmol/L (22-32); Chloride 105 mmol/L (98-107); Estimated Glomerular Filt Rate > 60 mL/min (>60); Glucose 105 mg/dL (70-100); HEMOLYSIS < 15 (0-50); Potassium 3.8 mmol/L (3.4-5.1); Sodium 139 mmol/L (137-145)
[2022-11-30] MEDS: ALBUTEROL 2.5 MG/3 ML NEB (ADULT) 5 MG INH (07:40)
[2022-11-30] MEDS: HEPARIN 5,000 UNIT/ML VIAL 5000 UNIT SUBCUT (08:21)
[2022-11-30] MEDS: predniSONE 20 MG TABLET 60 MG PO (08:21)
[2022-11-30] MEDS: ALBUTEROL 2.5 MG/3 ML NEB (ADULT) INH (11:04)
--- NOTE | 2022-11-30 20:36 | P.DS_ITS ---
History of Present Illness History of Present Illness Chief complaint: Allergies/Cold/Feverish/Cough/SOB Narrative: Mr. Henriquez is a 32M with PMH of asthma, morbid obesity who presents to the hospital with cough, fevers, shortness of breath. He states he developed a cold a few days ago. He started feeling much worse today with difficulty breathing. He has no chest pain. He is coughing up some phlegm. He did smoke for years but has quit. He does not have any medications for asthma at home, and has never bee n hospitalized with an asthma exacerbation. In the ED workup was done, vitals notable for fever to 101.7, heart rate in 100s, respiratory rate in 40s, sats in low 90s. Peak flow was 280. Labs reviewed by me and notable for ABG with pH 7.44, paO2 50. WBC 17.6. Lactate 2.0. Procal 0.07. Urine negative for infection. COVID negative. Enterovirus PCR positive. Chest xray reviewed by me and with only mild interstitial infiltrates per my read. He was ordered for albuterol. He was placed on BIPAP due to increased work of breathing. He was given additional albuterol. He was ordered for steroids and admitted for further treatment. Discharge Providers Provider Date of admission: 11/28/22 15:31 Discharge Date: 11/30/22 Primary care physician: Doctor Deana MD Consults: 11/28/22 19:06 Consult to Tele-security infrastructure engineer Routine Comment: Consulting Provider: [facility] Reason for consultation: Automotive Technology Instructor services Has provider been notified: Yes 11/28/22 19:27 Consult to Tele-security infrastructure engineer Routine Comment: Consulting Provider: [employer] Reason for consultation: Automotive Technology Instructor services Discharge provider: Mehul Silva MD Summary Hospital Course Discharge Diagnosis: 1. Acute hypoxemic respiratory failure 2. Probable asthma exacerbation 3. Viral pneumonia 4. Probable sleep apnea 5. Morbid obesity Hospital Course: Mr. Henriquez was admitted with shortness of breath and required oxygen for hypoxemia. He was found to have pneumonia on imaging, and rhinovirus positive on PCR. He has exercise induced asthma, and was thought to have an exacerbation. He improved with steroids, nebulizers and antibiotics. He was also thought to have chronic sleep apnea. He was discharged on antibiotics and steroids, and sent with a prescription for an inhaler. He was encouraged to setup a PCP to follow up with as soon as possible and setup sleep study. He was able to ambulate without desaturation or significant respiratory distress. Exam Vital Signs (past 8 hours): Fraction of Inspired Oxygen 21 SaO2/FiO2 Ratio 452 Oxygen Delivery Method Nasal Cannula Oxygen Flow Rate 0 Narrative Exam Narrative: GEN: no acute respiratory distress HEENT: moist mucous membranes PULM: improving breath sounds bilaterally CV: regular rate and rhythm, no murmurs ABD: soft, nontender, nondistended, no organomegaly EXT: warm and well perfused, no edema Objective Labs 11/30/22 04:15 11/30/22 04:15 Labs: Laboratory Results - last 24 hr 11/30/22 11/30/22 04:15 04:15 WBC 17.2 H RBC 4.55 Hgb 13.1 L Hct 38.8 L MCV 85.3 MCH 28.7 MCHC 33.6 RDW 13.7 Plt Count 327 Sodium 139 Potassium 3.8 Chloride 105 Carbon Dioxide 24 BUN 15 Creatinine 0.74 Estimated GFR > 60 BUN/Creatinine Ratio 20.3 Glucose 105 H Calcium 8.6 PFSH Medical History Acquired urinary meatal stenosis BXO (balanitis xerotica obliterans) History of high blood pressure Urethral injury Family History Father Cancer Hypertension Social History marital status: number of children: 4 household members: spouse and children Smoking Status: Former smoker Tobacco: How many years used: 3 alcohol intake: former caffeine: Yes Type(s) of exercise: none Discharge Plan Discharge Plan Patient Disposition: Home Provider Discharge Comment: Mr. Henriquez came in with shortness of breath. He had a viral pneumonia and an asthma exacerbation. He may have sleep apnea. He should setup a PCP and needs to follow up to get a sleep study. He should take his albuterol as needed. And finish his steroids and antibiotics. He should be off work for this week while he recovers and return to work Thursday 12/07 if he is feeling improved. Discharge orders & Medications Prescriptions: New prednisone 20 mg Tablet 60 mg PO DAILY Qty: 3 0RF levofloxacin 750 mg tablet 750 mg PO DAILY Qty: 3 0RF albuterol sulfate [Ventolin HFA] 90 mcg/actuation HFA aerosol inhaler 1 inh inhalation QID PRN (Reason: shortness of breath or wheezing) Qty: 6.7 0RF Follow up/Referrals: Miscellaneous,Doctor, [Primary Care Provider] - Diet/Activity/Treatments Diet: Regular Visit Report/Discharge Packet Instructions: DI for Asthma -- Adult, DI for Pneumonia -- Adult, Prednisone, Levofloxacin Stand Alone Forms: Patient Portal/API, Stroke Signs & Symptoms Discharge Data Primary Care Provider: Miscellaneous,Doctor Discharges patient from system. Discharge Date/Time: 11/30/22 14:30 Quality VTE Deep Vein Thrombosis/Pulmonary Embolism Present on Admission: No
== END 2022-11-30 14:30 | disposition home or self-care (01) | DRG 193 ==
LOC: ED 11:39 → AC 15:31 → ICU 16:17
PROVIDERS: Admitting Provider Internal Medicine; Emergency Provider Emergency Medicine; Family Provider Family Medicine; Referring Provider Emergency Medicine; Visit Provider Internal Medicine
DX: J12.9 Viral pneumonia, unspecified (principal); J96.01 Acute respiratory failure with hypoxia; J45.901 Unspecified asthma with (acute) exacerbation; B97.10 Unspecified enterovirus as the cause of diseases classified elsewhere; G47.33 Obstructive sleep apnea (adult) (pediatric); Z87.891 Personal history of nicotine dependence; Z20.822 Contact with and (suspected) exposure to COVID-19
CPT/HCPCS: 36415; 36600; 71045; 71275; 80048; 80053; 81001; 82805; 83605; 83690; 83735; 83880; 84145; 84484; 85025; 85027; 85610; 85730; 87040; 87070; 87077; 87086; 87147; 87205; 87633; 87797; 93005; 94150; 94640; 94660; 94762; 96374; 99284; 99291; J0696; J1644; J2930; J7613; Q9967